=== PATIENT | female | born 1960 | race Asian ===

== ENCOUNTER 2017-04-08 05:38 | Observation (INO) | payer OTHER ==
[~2017-04-08] VITALS: Ht 152.4 cm; Wt 55.4 kg
[2017-04-08] MEDS ORDERED: ASPIRIN 324 MG CHEW PO STA (05:55)
[2017-04-08] MEDS ORDERED: PNEUMOCOCCAL POLYSACCHARIDES 25 MCG/0.5 ML VIAL/SYR IM. ONE (06:00)
[2017-04-08] MEDS ORDERED: NITROGLYCERIN OINT 2% 1GM PACKET EXT ONE (06:00)
[2017-04-08] MEDS ORDERED: PNEUMOCOCCAL ADMINISTRATION CHARGE ONE (06:00)
[2017-04-08 06:06] LABS: HEMATOCRIT 39.3 % (37-47); MEAN CELL VOLUME 88.7 fL (80-100); MEAN CORPUSCULAR HEMOGLOBIN 28.9 pg (25-34); MEAN CORPUSCULAR HGB CONC 32.6 g/dl (32-36); MEAN PLATELET VOLUME 9.5 fL (7.4-10.4); PLATELET COUNT 192 K/uL (130-400); RED BLOOD COUNT 4.43 M/uL (4.2-5.4); WHITE BLOOD COUNT 4.55 K/uL (4.8-10.8)
[2017-04-08 06:17] LABS: INR 0.9 (0.9-1.1); PROTHROMBIN TIME (PATIENT) 10.1 SECONDS (9.0-12.0)
[2017-04-08 06:22] LABS: BUN/CREATININE RATIO 25.2 (10-20); CALCIUM 8.3 mg/dl (8.5-10.1); CREATININE 0.53 mg/dl (0.60-1.20); MAGNESIUM 2.3 mg/dl (1.8-2.4); POTASSIUM 3.7 mmol/L (3.5-5.1)
[2017-04-08 06:30] LABS: COMPLETE YES; EOSINOPHIL % 2.6 %; LYMPH ABS # 2.16 K/uL (1.2-3.4); LYMPHOCYTE % 47.4 %; NEUTROPHILS % 31.9 %; VARIANT LYM ABS # 0.67 K/uL; VARIANT LYMPHOCYTE % 14.7 %
[2017-04-08 06:34] LABS: ALB/GLOB RATIO 1.2 (0.9-2); THYROID STIMULATING HORMONE 6.95 uIu/ml (0.300-4.500)
[2017-04-08] MEDS ORDERED: GLIP5TAB11 PO (07:00)
--- NOTE | 2017-04-08 07:42 | DIAGNOSTIC IMAGING REPORT ---
TWO VIEW CHEST CLINICAL HISTORY: Atypical chest pain. FINDINGS: PA and lateral chest radiographs are obtained. No prior studies are available for comparison at the time of dictation. The heart is mildly enlarged and there is atherosclerotic calcification of the thoracic aorta. The pulmonary vasculature is noncongested. Nonspecific interstitial thickening is noted. No airspace consolidation or pleural effusion is identified. There is no pneumothorax. The skeletal structures are osteopenic. Degenerative change is noted in the thoracic spine. IMPRESSION: Mild cardiac enlargement with no acute cardiopulmonary abnormality. Electronically signed by: Dale Saldana M.D. 04/08/2017 7:41 AM Dictated Date/Time: 04/08/2017 7:40 AM
--- NOTE | 2017-04-08 07:54 | EMERGENCY ROOM VISIT NOTE ---
History First contact with patient: 05:45 Chief Complaint: CHEST PAIN Stated Complaint: CHEST PAIN Nursing Triage Summary: c/o chest pain to center of chest and dizziness that began tonight . pain described as pressure and patient states pain has improved on its own since arriving to ED. patient does state she is still dizzy and has a hx of DM . History of Present Illness The patient is a 57 year old female who presents to the Emergency Room with complaints of lightheadedness, chest pain, and dizziness that began approximately 2 hours prior to arrival. Patient is diabetic and states that her chest pain is central and nonradiating. She feels a tightness in the chest , and has never had symptoms like this before. The patient has not had recent illness. She rates her current discomfort a 7/10 and has not taken anything [id number] for her symptoms. Review of Systems More than 10 systems were reviewed and otherwise negative with the exception of history of present illness. Past Medical/Surgical History Diabetes Family History No pertinent family history Social History Smoking Status: Never Smoker Housing Status: lives with family Current/Historical Medications Scheduled Glipizide (Glucotrol), 1 TAB PO DAILY Allergies Coded Allergies: No Known Allergies (Unverified , 04/08/17) Physical Exam Vital Signs Date Time Temp Pulse Resp B/P Pulse Ox O2 Delivery O2 Flow Rate FiO2 04/08/17 06:33 60 18 125/77 96 Room Air 04/08/17 05:58 98 Room Air 04/08/17 05:56 98 Room Air 04/08/17 05:53 69 04/08/17 05:41 36.6 61 16 119/76 97 Room Air Physical Exam VITALS: Vitals are noted on the nurse's note and reviewed by myself. Vital signs stable. GENERAL: Well-developed, well-nourished, female who is diaphoretic and appears uncomfortable on examination. HEAD: Normocephalic atraumatic. HEART: Regular rate and rhythm without murmurs gallops or rubs. LUNGS: Clear to auscultation bilaterally without wheezes, rales or rhonchi. No retractions or accessory muscle use. ABDOMEN: Positive normal bowel sounds x 4. Soft, nontender, without masses or organomegaly. No guarding or rebound tenderness. MUSCULOSKELETAL: No muscle atrophy, erythema, or edema noted. Full range of motion without joint tenderness in all extremities. Medical Decision & Procedures ER Provider Diagnostic Interpretation: TWO VIEW CHEST CLINICAL HISTORY: Atypical chest pain. FINDINGS: PA and lateral chest radiographs are obtained. No prior studies are available for comparison at the time of dictation. The heart is mildly enlarged and there is atherosclerotic calcification of the thoracic aorta. The pulmonary vasculature is noncongested. Nonspecific interstitial thickening is noted. No airspace consolidation or pleural effusion is identified. There is no pneumothorax. The skeletal structures are osteopenic. Degenerative change is noted in the thoracic spine. IMPRESSION: Mild cardiac enlargement with no acute cardiopulmonary abnormality. Laboratory Results 04/08/17 05:50 Red Blood Count 4.43, Mean Corpuscular Volume 88.7, Mean Corpuscular Hemoglobin 28.9, Mean Corpuscular Hemoglobin Concent 32.6, Mean Platelet Volume 9.5 04/08/17 05:50 Test 04/08/17 05:50 04/08/17 06:02 White Blood Count 4.55 K/uL (4.8-10.8) Red Blood Count 4.43 M/uL (4.2-5.4) Hemoglobin 12.8 g/dL (12.0-16.0) Hematocrit 39.3 % (37-47) Mean Corpuscular Volume 88.7 fL (80-100) Mean Corpuscular Hemoglobin 28.9 pg (25-34) Mean Corpuscular Hemoglobin Concent 32.6 g/dl (32-36) Platelet Count 192 K/uL (130-400) Mean Platelet Volume 9.5 fL (7.4-10.4) RDW Standard Deviation 42.0 fL (36.4-46.3) RDW Coefficient of Variation 13.0 % (11.5-14.5) Neutrophils % (Manual) 31.9 % Lymphocytes % (Manual) 47.4 % Variant Lymphocytes % (manual) 14.7 % Monocytes % (Manual) 3.4 % Eosinophils % (Manual) 2.6 % Neutrophils # (Manual) 1.45 K/uL (1.4-6.5) Total Absolute Neutrophils 1.45 K/uL (1.4-6.5) Lymphocytes # (Manual) 2.16 K/uL (1.2-3.4) Absolute Variant Lymphocytes 0.67 K/uL Total Absolute Lymphocytes 2.83 K/uL (1.2-3.4) Monocytes # (Manual) 0.15 K/uL (0.11-0.59) Eosinophils # (Manual) 0.12 K/uL (0-0.5) Red Blood Cell Morphology Unremarkable Prothrombin Time 10.1 SECONDS (9.0-12.0) Prothromb Time International Ratio 0.9 (0.9-1.1) Activated Partial Thromboplast Time 25.9 SECONDS (21.0-31.0) Partial Thromboplastin Ratio 1.0 Anion Gap 8.0 mmol/L (3-11) Est Creatinine Clear Calc Drug Dose 82.1 ml/min Estimated GFR () 120.5 Estimated GFR (Non- 103.9 BUN/Creatinine Ratio 25.2 (10-20) Calcium Level 8.3 mg/dl (8.5-10.1) Magnesium Level 2.3 mg/dl (1.8-2.4) Total Bilirubin 0.4 mg/dl (0.2-1) Aspartate Amino Transf (AST/SGOT) 16 U/L (15-37) Alanine Aminotransferase (ALT/SGPT) 31 U/L (12-78) Alkaline Phosphatase 92 U/L (45-117) Total Protein 7.1 gm/dl (6.4-8.2) Albumin 3.8 gm/dl (3.4-5.0) Globulin 3.3 gm/dl (2.5-4.0) Albumin/Globulin Ratio 1.2 (0.9-2) Lipase 107 U/L (73-393) Thyroid Stimulating Hormone (TSH) 6.950 uIu/ml (0.300-4.500) Bedside D-Dimer 242 ng/mlFEU (0-450) Bedside Troponin I 0.000 ng/ml (0-0.045) Medications Administered Medications (Trade) Dose Ordered Sig/Shahriar Route Start Time Stop Time Status Last Admin Dose Admin Aspirin (Aspirin Chew) 324 mg NOW STAT PO 04/08/17 05:55 04/08/17 05:57 DC 04/08/17 06:09 324 MG Nitroglycerin (Nitroglycerin 2% Oint) 1 inch NOW ONCE EXT 04/08/17 06:00 04/08/17 06:01 DC 04/08/17 06:00 1 INCH ED Course Physical exam and history were performed. Nursing notes and EMR were reviewed. Patient appears to have chest pain, dizziness, and diaphoresis. IV access was established and labs were obtained. The patient was given aspirin and nitro paste here in the department. EKG was performed was normal sinus rhythm without acute ST elevation. She was placed on the laboratory monitor. The patient's blood work is as above and was reviewed. She does not have a significantly elevated white blood cell count, anemia, bandemia, or significant electrolyte imbalance. Lipase and transaminases are nondiagnostic. Troponin 1 is negative. Chest x-ray does not show acute findings. Patient had complete resolution of her discomfort after aspirin and Nitropaste. Because she is a diabetic and does have chest pain symptoms I do not feel comfortable discharging her home. The case was discussed with the on-call hospitalist who agreed to evaluate the patient here in the department for further care and management. The chart was completed utilizing [employer] Speech Voice Recognition Software. Grammatical errors, random word insertions, pronoun errors, and incomplete sentences are an occasional consequence of this system due to software limitations, ambient noise, and hardware issues. Any formal questions or concerns about the content, text, or information contained within the body of this dictation should be directly addressed to the provider for clarification. . Medical Decision Differential diagnosis includes, but is not limited to: Myocardial infarction, dysrhythmia, pericarditis, pneumothorax, aortic aneurysm/dissection, DVT/PE, anxiety, GERD, PUD, electrolyte imbalance, thyroid disorder, pneumonia, bronchitis, pancreatitis, and others Impression Primary Impression: Substernal precordial chest pain Departure Information Referrals No Doctor, Assigned (PCP) Patient Instructions [facility]
[2017-04-08] MEDS ORDERED: ONDANSETRON INJ 2 MG/ML 2 ML VIAL IV PRN (08:45)
[2017-04-08] MEDS ORDERED: ALUMINUM/MAGNESIUM/SIMETH (MAALOX MAX) 30 ML UDC PO PRN (08:45)
[2017-04-08] MEDS ORDERED: ACETAMINOPHEN 325 MG TAB PO PRN (08:45)
[2017-04-08] MEDS ORDERED: GLUCOSE 10 TABS/TUBE PO PRN (08:45)
[2017-04-08] MEDS ORDERED: MAGNESIUM HYDROXIDE SUSP 30 ML UDC PO PRN (08:45)
[2017-04-08] MEDS ORDERED: GLUCAGON FOR INJ 1 MG VIAL SQ PRN (08:45)
[2017-04-08] MEDS ORDERED: POLYETHYLENE (MIRALAX) 17 GM PACK PO PRN (08:45)
[2017-04-08] MEDS ORDERED: GLUCOSE 40% GEL 15 GM TUBE PO PRN (08:45)
[2017-04-08] MEDS ORDERED: DEXTROSE 50% 50 ML SYR IV PRN (08:45)
[2017-04-08 09:00] VITALS: O2SAT 96; Ht 152.4 cm; Wt 55.4 kg
[2017-04-08] MEDS ORDERED: OMEG10002 PO (09:09)
--- NOTE | 2017-04-08 09:13 | History and Physical ---
History & Physical Date & Time of Service: April 08, 2017 at 08:49 Chief Complaint: Chest Pain Primary Care Physician: No Doctor, Assigned History of Present Illness Source: patient, family (daughter at bedside), clinic records, hospital records This is a 57 y/o female with a history of DM II, HLD, and GERD who presented to the ED on 04/08 with chest tightness, palpitations, shortness of breath, dizziness and diaphoresis. The patient speaks limited Turkmen and history is obtained mostly through the daughter who acts as wage adjuster. The patient states that she developed chest tightness, palpitations, shortness of breath, dizziness, and diaphoresis about 2 hours prior to arrival. These symptoms were accompanied by anxiety and a feeling that she was "going to ." Her dizziness persisted until arriving to the ED, but her other symptoms only lasted for about 2 minutes. She currently denies any complaints and is feeling well now. Patient denies ever having similar symptoms in the past. She denies any previous cardiac history. The patient did receive 1 inch nitro paste on arrival to the ED as well as ASA 324 mg. The patient denies fevers, chills, chest pain, claudication, cough, wheezing, nausea, vomiting, abdominal pain, dysuria, hematuria, urinary retention, paralysis, weakness, numbness and tingling. Past Medical/Surgical History Diabetes mellitus type 2 HLD GERD Family History Diabetes mellitus MOTHER Hypertension Oral cancer BROTHER Stroke FATHER Social History Smoking Status: Never Smoker Smokeless Tobacco Use: No Alcohol Use: none Drug Use: none Marital Status: Housing status: lives with family (with daughter) Multi-Drug Resistant Organisms History of MDRO: No Allergies Coded Allergies: No Known Allergies (Unverified , 04/08/17) Home Medications Scheduled Glipizide (Glucotrol), 1 TAB PO DAILY [place]-3 Fatty Acids (Fish Oil), 1,000 MG PO DAILY Review of Systems Constitutional: + problem reported (dizziness), + sweats, No chills, No fever Eyes: No diplopia, No eye pain, No worsening of vision ENT: No hearing loss, No sore throat, No trouble swallowing Respiratory: + shortness of breath (resolved), No cough, No wheezing Cardiovascular: + palpitations (resolved), + problem reported (chest tight), No chest pain, No edema Abdomen: No nausea, No pain, No vomiting Musculoskeletal: No calf pain, No joint pain, No muscle pain Genitourinary - Female: No dysuria, No hematuria, No urinary retention Neurologic: No numbness/tingling, No paralysis, No weakness Integumentary: No color change, No itch, No rash Physical Exam Vital Signs Date Time Temp Pulse Resp B/P Pulse Ox O2 Delivery O2 Flow Rate FiO2 04/08/17 08:10 66 16 104/77 04/08/17 07:52 58 16 114/72 04/08/17 06:33 60 18 125/77 96 Room Air 04/08/17 05:58 98 Room Air 04/08/17 05:56 98 Room Air 04/08/17 05:53 69 04/08/17 05:41 36.6 61 16 119/76 97 Room Air General Appearance: WD/WN, no apparent distress Head: normocephalic, atraumatic Eyes: normal inspection, PERRL, EOMI ENT: normal ENT inspection, hearing grossly normal, pharynx normal Neck: supple, no JVD, trachea midline Respiratory/Chest: lungs clear, normal breath sounds, no respiratory distress Cardiovascular: regular rate, rhythm, no gallop, no murmur Abdomen/GI: normal bowel sounds, non tender, soft Extremities/Musculoskelatal: normal inspection, no calf tenderness, no pedal edema Neurologic/Psych: alert, normal mood/affect, oriented x 3 Skin: normal color, warm/dry, no rash Diagnostics Laboratory Results Results Past 24 Hours Test 04/08/17 05:50 04/08/17 06:02 Range/Units White Blood Count 4.55 4.8-10.8 K/uL Red Blood Count 4.43 4.2-5.4 M/uL Hemoglobin 12.8 12.0-16.0 g/dL Hematocrit 39.3 37-47 % Mean Corpuscular Volume 88.7 80-100 fL Mean Corpuscular Hemoglobin 28.9 25-34 pg Mean Corpuscular Hemoglobin Concent 32.6 32-36 g/dl Platelet Count 192 130-400 K/uL Mean Platelet Volume 9.5 7.4-10.4 fL RDW Standard Deviation 42.0 36.4-46.3 fL RDW Coefficient of Variation 13.0 11.5-14.5 % Neutrophils % (Manual) 31.9 % Lymphocytes % (Manual) 47.4 % Variant Lymphocytes % (manual) 14.7 % Monocytes % (Manual) 3.4 % Eosinophils % (Manual) 2.6 % Neutrophils # (Manual) 1.45 1.4-6.5 K/uL Total Absolute Neutrophils 1.45 1.4-6.5 K/uL Lymphocytes # (Manual) 2.16 1.2-3.4 K/uL Absolute Variant Lymphocytes 0.67 K/uL Total Absolute Lymphocytes 2.83 1.2-3.4 K/uL Monocytes # (Manual) 0.15 0.11-0.59 K/uL Eosinophils # (Manual) 0.12 0-0.5 K/uL Red Blood Cell Morphology Unremarkable Prothrombin Time 10.1 9.0-12.0 SECONDS Prothromb Time International Ratio 0.9 0.9-1.1 Activated Partial Thromboplast Time 25.9 21.0-31.0 SECONDS Partial Thromboplastin Ratio 1.0 Sodium Level 143 136-145 mmol/L Potassium Level 3.7 3.5-5.1 mmol/L Chloride Level 109 98-107 mmol/L Carbon Dioxide Level 26 21-32 mmol/L Anion Gap 8.0 3-11 mmol/L Blood Urea Nitrogen 13 7-18 mg/dl Creatinine 0.53 0.60-1.20 mg/dl Est Creatinine Clear Calc Drug Dose 82.1 ml/min Estimated GFR () 120.5 Estimated GFR (Non- 103.9 BUN/Creatinine Ratio 25.2 10-20 Random Glucose 123 70-99 mg/dl Calcium Level 8.3 8.5-10.1 mg/dl Magnesium Level 2.3 1.8-2.4 mg/dl Total Bilirubin 0.4 0.2-1 mg/dl Aspartate Amino Transf (AST/SGOT) 16 15-37 U/L Alanine Aminotransferase (ALT/SGPT) 31 12-78 U/L Alkaline Phosphatase 92 45-117 U/L Total Protein 7.1 6.4-8.2 gm/dl Albumin 3.8 3.4-5.0 gm/dl Globulin 3.3 2.5-4.0 gm/dl Albumin/Globulin Ratio 1.2 0.9-2 Lipase 107 73-393 U/L Thyroid Stimulating Hormone (TSH) 6.950 0.300-4.500 uIu/ml Bedside D-Dimer 242 0-450 ng/mlFEU Bedside Troponin I 0.000 0-0.045 ng/ml Diagnostic Radiology Reviewed the following studies and agree with interpretation as follows: Patient Name: LUKE PINEDO Unit Number: [id number] Dictated: 04/08/17739 Transcribed: 04/08/17739 EV Printed Date/Time: [~ rep prt dt]/[~ rep prt tm] [~ rep ct labl] - [~ rep ct ivnm] [facility] [place] [address] Dictated: 04/08/17739 Transcribed: 04/08/17739 EV Printed Date/Time: [~ rep prt dt]/[~ rep prt tm] [~ rep ct labl] - [~ rep ct ivnm] Patient: LUKE PINEDO Address1: [address] [place] [address] Rec: [id number] Address2: Acct ID: [id number] [facility] Zip: [place] [address] Date: 1960 Sex: F Room/Bed: Ref Phy: No Doctor, Assigned SC: MELANIA Att Phy: Report #: [id number] Barbara Phy: No Doctor, Assigned Test: CXR Admit Phy: Burrito Maker: ERAN Interpreting Phy: Dale Saldana M.D. Diagnosis: CHEST PAIN Ordering Phy: Reji Rosado PA-C Service Date: 04/08/17 Admit Date: 04/08/17 MNE: [id number] CONF: DICTATED BY: Dale Saldana M.D.]] CC: Reji Rosado PA-C McKinley, Daniel F., M.D. No Doctor, Assigned Endcc: [~ rep ct add3]] TWO VIEW CHEST CLINICAL HISTORY: Atypical chest pain. FINDINGS: PA and lateral chest radiographs are obtained. No prior studies are available for comparison at the time of dictation. The heart is mildly enlarged and there is atherosclerotic calcification of the thoracic aorta. The pulmonary vasculature is noncongested. Nonspecific interstitial thickening is noted. No airspace consolidation or pleural effusion is identified. There is no pneumothorax. The skeletal structures are osteopenic. Degenerative change is noted in the thoracic spine. IMPRESSION: Mild cardiac enlargement with no acute cardiopulmonary abnormality. Electronically signed by: Dale Saldana M.D. 04/08/2017 7:41 AM Dictated Date/Time: 04/08/2017 7:40 AM The status of this report is Signed. Draft = Not yet reviewed or approved by Radiologist. Signed = Reviewed and approved by Radiologist. <AttendingPhy></AttendingPhy> <FamilyPhy>No Doctor, Assigned</FamilyPhy> < PrimaryPhy>No Doctor, Assigned</PrimaryPhy> <UnitNumber>[id number]</UnitNumber> <VisitNumber>[id number]</VisitNumber> <PatientName>LUKE PINEDO</PatientName> < DateOfBirth>1960</DateOfBirth> <Location>[facility]</Location> <ServiceDate></ServiceDate> <MNE>ESINDI</MNE> <OrderingPhy>Reji Rosado PA-C</ OrderingPhy> <OrderingPhyMNE>f rep ord dr patterson</OrderingPhyMNE> <DictatingPhyMNE> f rep dict dr patterson</DictatingPhyMNE> <CCListMNE>f rep ct yesenia</CCListMNE> < AdmittingPhyMNE>f pt admit dr patterson</AdmittingPhyMNE> <AttendingPhyMNE>f pt attend dr patterson</AttendingPhyMNE> <ConsultingPhyMNE>f pt consult dr patterson</ConsultingPhyMNE> <FamilyPhyMNE>f pt fam dr patterson</FamilyPhyMNE> <OtherPhyMNE>f pt other dr patterson</OtherPhyMNE> < PrimaryPhyMNE>f pt prim care dr patterson</PrimaryPhyMNE> <ReferringPhyMNE>f pt referring dr patterson</ReferringPhyMNE> EKG Reviewed EKG and agree with interpretation as follows: 69 bpm, sinus rhythm with 1st degree AV block Impression Assessment and Plan 57 y/o female with a history of DM II, HLD, and GERD who presented to the ED on 04/08 with chest tightness, palpitations, shortness of breath, dizziness and diaphoresis. Patient developed these symptoms denies prior to arrival. The symptoms did spontaneously resolve. On arrival patient is afebrile and vital signs are stable. [id number] troponin is negative. EKG shows no ischemic changes. Labs are grossly within normal limits however the patient does have an elevated TSH of 6.95. Chest pain rule out--patient denies pain per se but did complain of palpitations , diaphoresis, SOB and chest tightness. As a female over 50 and diabetic, could present atypically -Admit to telemetry for observation -Trend serial cardiac enzymes every 6 hours -Keep patient nothing by mouth for now -Tentative stress echo this afternoon if troponins negative 2 -Check lipid profile and hemoglobin A1c -Cardiology consulted, appreciate recs Diabetes mellitus type 2--last hemoglobin A1c and hospital records is from 2011. Patient states that she checks her blood sugars regularly at home and they average around 125 -Hold glipizide -Insulin sliding scale -Check BSGs q ac and qhs HLD--patient had previously been on Lipitor but was told by her doctor that she did not need to be on this anymore. No lipid panel in hospital records -Continue fish oil Elevated TSH--no known history of thyroid dysfunction -Check free T4 and T3 GERD--pt states happens occasionally, no meds for this DVT prophylaxis -Enoxaparin 30 mg SC q24h -CASS Mccall Code Status -Level I, FULL RESUSCITATION STATUS This chart was completed in part utilizing [employer] Speech Voice Recognition software. Attempts were made to minimize the grammatical errors, random word insertions, pronoun errors and incomplete sentences. Any formal questions or concerns about the content, text or information contained within the body of this dictation should be directly addressed to the provider for clarification. Level of Care Telemetry Resuscitation Status FULL RESUSCITATION VTE Prophylaxis VTE Risk Assessment Done? Y/N: Yes Risk Level: Moderate Given or contraindicated: Enoxaparin (Lovenox)SQ, SCD's Reviewed: Pt Seen/Exam by Me History Physician Office Engineer Supervision Note: I interviewed and examined the patient. Discussed with RHONDA Morrison and agree with findings and plan as documented in the note. Any exceptions or clarifications are listed here: Patient admitted for heart palpitations with lightheadedness and sense of impending doom with shortness of breath. Discussed case with cardiology today. She was unable to complete her stress echocardiogram due to lightheadedness with exercise. Cardiac biomarkers are negative. Vitals and telemetry reviewed No acute distress, thin Regular rate and rhythm, no murmurs gallops or rubs, no carotid bruits Clear to auscultation bilaterally, breathing unlabored Abdomen positive bowel sounds soft nontender nondistended Extremities no edema 57-year-old female with history of diabetes and hyperlipidemia, here with heart palpitations and lightheadedness with diaphoresis and shortness of breath lasting several minutes. She is ruled out for acute coronary syndrome. Transthoracic echo with diastolic dysfunction but otherwise okay. A nap able to complete stress echocardiogram today. -We'll try dobutamine stress possibly tomorrow -Subclinical hypothyroidism-suggest follow-up thyroid function tests in 3-4 weeks as an outpatient -Start moderate intensity statin, continue daily aspirin -Continue observation on telemetry for heart block as cause of her symptoms-May need loop recorder or long-term event monitor upon discharge Documented By: So Christian
[2017-04-08 09:35] LABS: CHOLESTEROL/HDL RATIO 3.9
[2017-04-08 09:40] LABS: ESTIMATED AVERAGE GLUCOSE 146 mg/dl; HA1C FLAG Normal (Normal)
[2017-04-08] MEDS ORDERED: IV FLUIDS COMPLETED PRN (10:30)
[2017-04-08 10:35] VITALS: O2SAT 97
[2017-04-08 11:34] VITALS: BP 126/75; PULSE 63; TEMP 36.8; O2SAT 92
[2017-04-08 12:42] LABS: CKMB/CK RATIO 1.1 (0-3.0)
[2017-04-08] MEDS: ENOXAPARIN 30 MG/0.3 ML SYR SC SCH (13:24)
[2017-04-08] MEDS: INSULIN ASPART 100 UNITS/ML 3 ML PEN SC SCH ×3 (13:24→20:39)
--- NOTE | 2017-04-08 13:52 | Cardiology Consultation ---
Cardiology Consultation Date of Consultation: April 08, 2017. Requesting Physician: Dr. Morrison Reason for Consultation: Chest pain Pt evaluation today including: conversation w/ patient, physical exam, lab review, review of studies, review of inpatient medication list History of Present Illness This is a very pleasant 57-year-old Urdu woman who has a history of diabetes, hyperlipidemia and GERD and presented today with chest tightness. She describes development of epigastric and lower sternal chest discomfort associated with shortness of breath, dizziness and diaphoresis which started about 2 hours before presenting to the emergency room. This was accompanied by a sense of doom. The episode was brief in duration, although some symptoms of dizziness persisted until she came into the emergency room. This has not recurred. She has not had prior episodes. Other than having risk factors for coronary disease she does not have any prior history of heart disease. Her father had a stroke but she does not have a family history of heart disease. Currently she feels well and has no complaints. She is resting in bed. Past Medical/Surgical History Diabetes mellitus Hypercholesterolemia GERD Family History Diabetes mellitus MOTHER Hypertension Oral cancer BROTHER Stroke FATHER Social History Smoking Status: Never Smoker History of Alcohol Use: No Review of Systems Constitutional: No fever, No weakness, No weight loss Respiratory: No cough, No dyspnea on exertion, No shortness of breath, No wheezing Cardiac: No PND, No chest pain, No edema, No orthopnea, No palpitations Abdomen: No GI bleeding, No diarrhea, No nausea, No pain, No vomiting Female : No problem reported Neurologic: No balance problems, No numbness/tingling, No paralysis, No weakness Heme: No abnormal bleeding/bruising, No clotting problems Endo: No fatigue Skin: No problem reported All Other Systems: Reviewed and Negative Allergies Coded Allergies: No Known Allergies (Unverified , 04/08/17) Medications Current Inpatient Medications Medications (Trade) Dose Ordered Sig/Shahriar Route Start Time Stop Time Status Last Admin Dose Admin Enoxaparin Sodium (Lovenox Inj) 30 mg QAM SC 04/08/17 12:00 05/08/17 11:59 04/08/17 13:24 30 MG Acetaminophen (Tylenol Tab) 650 mg Q4H PRN PO 04/08/17 08:45 05/08/17 08:44 Al Hydrox/Mg Hydrox/Simethicone (Maalox Max Susp) 15 ml Q4H PRN PO 04/08/17 08:45 05/08/17 08:44 Magnesium Hydroxide (Milk Of Magnesia Susp) 30 ml Q12H PRN PO 04/08/17 08:45 05/08/17 08:44 Ondansetron HCl (Zofran Inj) 4 mg Q6H PRN IV 04/08/17 08:45 05/08/17 08:44 Polyethylene (Miralax Powder Packet) 17 gm DAILY PRN PO 04/08/17 08:45 05/08/17 08:44 Glucose (Glucose 40% Gel) 15-30 GRAMS 15 GRAMS... UD PRN PO 04/08/17 08:45 05/08/17 08:44 Glucose (Glucose Chew Tab) 4-8 Tablets 4 Tabl... UD PRN PO 04/08/17 08:45 05/08/17 08:44 Dextrose (Dextrose 50% 50ML Syringe) 25-50ML OF 50% DW IV FOR... UD PRN IV 04/08/17 08:45 05/08/17 08:44 Glucagon (Glucagon Inj) 1 mg UD PRN SQ 04/08/17 08:45 05/08/17 08:44 Insulin Aspart (novoLOG ASPART) SLIDING SCALE G... ACHS SC 04/08/17 11:00 05/08/17 10:59 Fish Oil ([place]-3 (Purified Fish Oil) Cap) 1 gm DAILY PO 04/09/17 09:00 05/09/17 08:59 Miscellaneous (Iv Fluids Completed) 1 ea PRN PRN N/A 04/08/17 10:30 04/08/18 10:29 Physical Exam Vital Signs Past 12 Hours Date Time Temp Pulse Resp B/P Pulse Ox O2 Delivery O2 Flow Rate FiO2 04/08/17 11:34 36.8 63 16 126/75 92 Room Air 04/08/17 10:35 65 16 111/70 97 Room Air 04/08/17 09:32 69 16 114/65 04/08/17 09:00 96 Room Air 04/08/17 08:10 66 16 104/77 04/08/17 07:52 58 16 114/72 04/08/17 06:33 60 18 125/77 96 Room Air 04/08/17 05:58 98 Room Air 04/08/17 05:56 98 Room Air 04/08/17 05:53 69 04/08/17 05:41 36.6 61 16 119/76 97 Room Air Constitutional: General Apperance: heathly-appearing Level of Distress: NAD Psychiatric: Mental Status: active & alert Head: normocephalic Eyes: EOM: EOMI ENMT: normal ENT inspection, hearing grossly normal Neck: supple, no masses Lungs: Respiratory effort: no dyspnea, good air movement Auscultation: breath sounds normal, no wheezing Cardiovascular: Heart Auscultation: RRR, no murmurs, no rubs, no gallops Peripheral Pulses: Bruits: none appreciated Abdomen: Bowel Sounds: normal Inspection & Palpation: soft, no tenderness, guarding & rebound, no masses Musculoskeletal: normal strength (5/5 throughout) Extremities: no edema Neurologic: Cranial Nerves: grossly intact Sensation: grossly intact Data Laboratory Results: Last 24 Hours Test 04/08/17 05:50 04/08/17 06:02 04/08/17 11:45 04/08/17 11:50 White Blood Count 4.55 K/uL Red Blood Count 4.43 M/uL Hemoglobin 12.8 g/dL Hematocrit 39.3 % Mean Corpuscular Volume 88.7 fL Mean Corpuscular Hemoglobin 28.9 pg Mean Corpuscular Hemoglobin Concent 32.6 g/dl Platelet Count 192 K/uL Mean Platelet Volume 9.5 fL RDW Standard Deviation 42.0 fL RDW Coefficient of Variation 13.0 % Neutrophils % (Manual) 31.9 % Lymphocytes % (Manual) 47.4 % Variant Lymphocytes % (manual) 14.7 % Monocytes % (Manual) 3.4 % Eosinophils % (Manual) 2.6 % Neutrophils # (Manual) 1.45 K/uL Total Absolute Neutrophils 1.45 K/uL Lymphocytes # (Manual) 2.16 K/uL Absolute Variant Lymphocytes 0.67 K/uL Total Absolute Lymphocytes 2.83 K/uL Monocytes # (Manual) 0.15 K/uL Eosinophils # (Manual) 0.12 K/uL Red Blood Cell Morphology Unremarkable Prothrombin Time 10.1 SECONDS Prothromb Time International Ratio 0.9 Activated Partial Thromboplast Time 25.9 SECONDS Partial Thromboplastin Ratio 1.0 Sodium Level 143 mmol/L Potassium Level 3.7 mmol/L Chloride Level 109 mmol/L Carbon Dioxide Level 26 mmol/L Anion Gap 8.0 mmol/L Blood Urea Nitrogen 13 mg/dl Creatinine 0.53 mg/dl Est Creatinine Clear Calc Drug Dose 82.1 ml/min Estimated GFR () 120.5 Estimated GFR (Non- 103.9 BUN/Creatinine Ratio 25.2 Random Glucose 123 mg/dl Estimated Average Glucose 146 mg/dl Hemoglobin A1c 6.7 % Calcium Level 8.3 mg/dl Magnesium Level 2.3 mg/dl Total Bilirubin 0.4 mg/dl Aspartate Amino Transf (AST/SGOT) 16 U/L Alanine Aminotransferase (ALT/SGPT) 31 U/L Alkaline Phosphatase 92 U/L Total Protein 7.1 gm/dl Albumin 3.8 gm/dl Globulin 3.3 gm/dl Albumin/Globulin Ratio 1.2 Triglycerides Level 106 mg/dl Cholesterol Level 209 mg/dl HDL Cholesterol 54 mg/dl LDL Cholesterol, Calculated 134 mg/dl VLDL Cholesterol, Calculated 21 mg/dl Cholesterol/HDL Ratio 3.9 Lipase 107 U/L Thyroid Stimulating Hormone (TSH) 6.950 uIu/ml Free Thyroxine 1.06 ng/dl Free Triiodothyronine 3.07 pg/ml Bedside D-Dimer 242 ng/mlFEU Bedside Troponin I 0.000 ng/ml Total Creatine Kinase 85 U/L Creatine Kinase MB 0.9 ng/ml Creatine Kinase MB Ratio 1.1 Troponin I < 0.015 ng/ml Bedside Glucose 137 mg/dl Imaging: Chest x-ray essentially unremarkable EKG: Sinus rhythm with first-degree AV block, no acute change Telemetry reviewed: Sinus rhythm with first-degree AV block, no arrhythmia identified. Assessment & Plan #1. Symptoms of chest discomfort, palpitations and dizziness: The cause is unclear, the only finding is that of first-degree AV block. The chest discomfort was very short lived but the dizziness was more prolonged, it is unlikely that this is an ischemic event. The enzymes are negative 2 sets and there are no acute changes on electrocardiography. I think it would be reasonable to do a stress test however given her diabetes and hypercholesterolemia. We'll therefore plan on doing a stress echo today. First-degree AV block: She is on no medications to cause first-degree AV block and therefore the reason for this is unknown. It may simply be first-degree AV block or it is possible that her symptoms were due to higher grade AV block, certainly the dizziness could have been. We have not seen further heart block but we can see if her heart rate response normally on treadmill testing, additionally I would keep her at least overnight tonight to make sure she does not develop higher grade AV block overnight. Event monitoring for one month might be a consideration if nothing is identified on monitoring in the hospital. Thank you for allowing me to participate in her care.
--- NOTE | 2017-04-08 16:34 | ECHOCARDIOGRAM REPORT ---
*NOTICE TO RECEIVING [employer] This information is strictly Confidential and protected under [place] law. [place] law prohibits you from making any further disclosure of this information unless further disclosure is expressly permitted by the written consent of the person to whom it pertains or is authorized by law. A general authorization for the release of medical or other information is not sufficient for this purpose. Hospital accepts no responsibility if the information is made available to any other person, INCLUDING THE PATIENT. Interpretation Summary * Conclusions -- * There is borderline concentric left ventricular hypertrophy. * Left ventricular systolic function is normal. * Grade I diastolic dysfunction, (abnormal relaxation pattern). Procedure Details * Left Ventricle The left ventricle is normal in size. There is borderline concentric left ventricular hypertrophy. Left ventricular systolic function is normal. Ejection Fraction = 60-65%. Grade I diastolic dysfunction, (abnormal relaxation pattern). The left ventricular wall motion is normal. * Right Ventricle The right ventricle is normal in size and function. The right ventricular systolic function is normal as assessed by tricuspid annular plane systolic excursion (TAPSE) (normal >1.5 cm). * Atria The left atrial size is normal. Right atrial size is normal. Cannot exclude PFO * Mitral Valve The mitral valve is grossly normal. There is no mitral regurgitation noted. * Tricuspid Valve The tricuspid valve is not well visualized, but is grossly normal. Significant tricuspid regurgitation is absent. * Aortic Valve The aortic valve is normal in structure and function. No hemodynamically significant valvular aortic stenosis. Trace aortic regurgitation. * Pericardium/Pleural There is no pericardial effusion. * * MMode 2D Measurements and Calculations * IVSd 0.99 cm * IVSs 1.3 cm * * LVIDd 3.8 cm * LVIDs 2.6 cm * LVPWd 1.2 cm * LVPWs 1.6 cm * * IVS/LVPW 0.85 * FS 33.7 % * EDV(Teich) 63.8 ml * ESV(Teich) 23.5 ml * EF(Teich) 63.2 % * * EDV(cubed) 57.0 ml * ESV(cubed) 16.6 ml * EF(cubed) 70.8 % * % IVS thick 27.6 % * % LVPW thick 35.6 % * * LV mass(C)d 132.7 grams * LV mass(C)dI 88.7 grams/m\S\2 * LV mass(C)s 117.0 grams * LV mass(C)sI 78.1 grams/m\S\2 * * CO(Teich) 2.2 l/min * CI(Teich) 1.5 l/min/m\S\2 * SV(Teich) 40.3 ml * SI(Teich) 26.9 ml/m\S\2 * CO(cubed) 2.2 l/min * CI(cubed) 1.5 l/min/m\S\2 * SV(cubed) 40.3 ml * SI(cubed) 26.9 ml/m\S\2 * * ACS 1.6 cm * * asc Aorta Diam 3.3 cm * * LVOT diam 2.2 cm * LVOT area 3.9 cm\S\2 * * LVAd ap4 26.7 cm\S\2 * LVLd ap4 8.7 cm * EDV(MOD-sp4) 69.0 ml * LVAs ap4 14.0 cm\S\2 * LVLs ap4 6.6 cm * ESV(MOD-sp4) 25.0 ml * EF(MOD-sp4) 63.8 % * * LVAd ap2 20.4 cm\S\2 * LVLd ap2 7.7 cm * EDV(MOD-sp2) 46.0 ml * LVAs ap2 10.9 cm\S\2 * LVLs ap2 5.8 cm * ESV(MOD-sp2) 17.0 ml * EF(MOD-sp2) 63.0 % * * CO(MOD-sp4) 2.4 l/min * CI(MOD-sp4) 1.6 l/min/m\S\2 * SV(MOD-sp4) 44.0 ml * SI(MOD-sp4) 29.4 ml/m\S\2 * * CO(MOD-sp2) 1.6 l/min * CI(MOD-sp2) 1.0 l/min/m\S\2 * SV(MOD-sp2) 29.0 ml * SI(MOD-sp2) 19.4 ml/m\S\2 * * * * * * Doppler Measurements and Calculations * MV E max yaw 65.6 cm/sec * MV A max yaw 83.3 cm/sec * * MV E/A 0.79 * * MV P1/2t max yaw 71.2 cm/sec * MV P1/2t 87.1 msec * MVA(P1/2t) 2.5 cm\S\2 * MV dec slope 239.5 cm/sec\S\2 * MV dec time 0.19 sec * * Ao V2 max 105.9 cm/sec * Ao max PG 4.5 mmHg * Ao max PG (full) 1.6 mmHg * KOSTAS(V,A) 3.1 cm\S\2 * KOSTAS(V,D) 3.1 cm\S\2 * * LV V1 max PG 2.9 mmHg * * LV V1 max 85.2 cm/sec * * PA V2 max 61.7 cm/sec * PA max PG 1.5 mmHg * * *
[2017-04-08 17:18] VITALS: BP 105/63; PULSE 50; TEMP 37.1; O2SAT 96
[2017-04-08 19:39] VITALS: BP 116/73; PULSE 58; TEMP 37; O2SAT 92
[2017-04-08 23:12] VITALS: BP 111/64; PULSE 52; TEMP 36.6; O2SAT 95
[2017-04-09 03:50] VITALS: BP 109/65; PULSE 51; TEMP 36.6; O2SAT 94
[2017-04-09 05:49] LABS: URINE APPEARANCE CLEAR (CLEAR); URINE BILIRUBIN NEG (NEG); URINE COLOR YELLOW; URINE NITRITE NEG (NEG); UROBILINOGEN NEG (NEG); ZZUR CULT IF INDIC CLEAN CATCH NO
[2017-04-09 06:06] LABS: MANUAL MICROSCOPIC REQUIRED? NO; REVIEW REQ? NO
[2017-04-09 07:02] VITALS: BP 102/62; PULSE 52; TEMP 36.6; O2SAT 95
[2017-04-09 07:12] LABS: HEMATOCRIT 37.2 % (37-47); MEAN CORPUSCULAR HEMOGLOBIN 29.7 pg (25-34); MEAN CORPUSCULAR HGB CONC 33.3 g/dl (32-36); RED BLOOD COUNT 4.18 M/uL (4.2-5.4); WHITE BLOOD COUNT 3.12 K/uL (4.8-10.8)
[2017-04-09 07:13] LABS: MEAN PLATELET VOLUME 9.5 fL (7.4-10.4); PLATELET COUNT 189 K/uL (130-400)
[2017-04-09 07:48] LABS: BUN/CREATININE RATIO 22.5 (10-20); CREATININE 0.75 mg/dl (0.60-1.20); POTASSIUM 3.7 mmol/L (3.5-5.1)
[2017-04-09 07:49] LABS: CALCIUM 8.3 mg/dl (8.5-10.1)
[2017-04-09] MEDS: INSULIN ASPART 100 UNITS/ML 3 ML PEN SC SCH ×3 (08:52→16:30)
[2017-04-09] MEDS: ENOXAPARIN 30 MG/0.3 ML SYR SC SCH (08:53)
[2017-04-09] MEDS ORDERED: ATORVASTATIN 20 MG TAB PO SCH (09:00)
[2017-04-09] MEDS ORDERED: ASPIRIN 81 MG ECTAB PO SCH (09:00)
[2017-04-09] MEDS ORDERED: OMEGA-3 (PURIFIED FISH OIL) 1 GM CAP PO SCH (09:00)
[2017-04-09 11:30] VITALS: BP 118/67; PULSE 48; TEMP 36.6; O2SAT 96
[2017-04-09] MEDS ORDERED: DOBUTamine HCL 12.5 MG/ML 20 ML VIAL ONE (12:54)
[2017-04-09] MEDS ORDERED: ATROPINE SULFATE 0.1 MG/ML 5ML SYR ONE (12:54)
[2017-04-09] MEDS ORDERED: METOPROLOL TARTRATE 1 MG/ML VIAL ONE (12:54)
[2017-04-09] MEDS ORDERED: LPT20 PO (13:19)
[2017-04-09] MEDS ORDERED: ASPEC81 PO (13:19)
--- NOTE | 2017-04-09 14:15 | Discharge Instructions ---
Discharge Instructions Date of Service April 09, 2017. Admission Reason for Admission: Dizziness, Palpitations Discharge Discharge Diagnosis / Problem: Dizziness, palpitations, first degree AV block Discharge Goals Goal(s): Decrease discomfort, Improve function, Diagnostic testing, Therapeutic intervention Activity Recommendations Activity Limitations: resume your previous activity (as tolerated) . Instructions / Follow-Up Instructions / Follow-Up You were admitted to the hospital for overnight observation after presenting to the ER with dizziness, palpitations (heart racing/fluttering), shortness of breath, sweating and chest tightness. Women and diabetics can often have atypical presentations of heart attack even without chest pain, so you were admitted to rule out any acute cardiac events. Your EKG did show a first degree AV block, or heart block, which is a common condition in which there is a delay of the electrical signal that goes down to the bottom chambers of your heart (ventricles) to stimulate them to contract. It is unknown at this time why you have a first degree AV block. You were observed with continuous cardiac monitoring to see if you developed any further/higher grade heart block , but you have so far not shown any evidence of this. You will follow up with cardiology as an outpatient who may consider monitoring your heart over the course of a month to make sure you do not develop worsening heart block. Other cardiac work up included trending cardiac enzymes, which are substances that are released into the blood when there is damage to the heart. These have all been normal. You underwent a stress echocardiogram, in which an ultrasound of the heart was checked after a stress-state had been induced by a chemical injection. This was also normal and did not show any acute or concerning findings. Your cholesterol was checked which did show that your cholesterol was slightly high. Your [id number], a test to assess your diabetes, was normal and showed that your diabetes is well controlled. Due to your cardiovascular risk based on age, cholesterol and diabetes, however, it is recommended that you start taking cholesterol medication again. While being worked up for your symptoms, you were found to have an elevated thyroid stimulating hormone, which was suggestive of an underactive thyroid. Your thyroid hormones were also checked, but these were normal, not decreased as would be expected. This likely represents a subclinical hypothyroidism and does not need to be treated at this time due to lack of associated symptoms. Your primary care provider should recheck your thyroid in 3-4 weeks as an outpatient, or sooner if you develop symptoms such as fatigue, cold sensitivity , constipation, and weight gain. As your cardiac work up in the hospital has been normal, you are now medically stable for discharge to home. Medications: *Start taking atorvastatin (Lipitor) 20 mg by mouth daily. *Please start taking aspirin 81 mg by mouth daily. *Continue your other home medications as prescribed. You may continue taking your over the counter supplements as before. Follow up: *The Nurse Navigator at the hospital will schedule you for a follow up appointment with cardiology and a primary care provider. *Have your thyroid function rechecked in 3-4 weeks with your primary care provider as above. Please seek medical attention if you experience fevers, chills, sweats, chest pain, palpitations, dizziness, loss of consciousness, shortness of breath, nausea, vomiting, numbness or tingling. Current Hospital Diet Patient's current hospital diet: AHA Diet (Heart Healthy), Diabetes Type 2 Diet Discharge Diet Recommended Diet: AHA Diet (Heart Healthy), Diabetes Type 2 Diet Procedures Procedures Performed: Stress echocardiogram Pending Studies Studies pending at discharge: no Laboratory Results Hemoglobin A1c Test 04/08/17 05:50 Range/Units Estimated Average Glucose 146 mg/dl Hemoglobin A1c 6.7 H 4.5-5.6 % Lipid Panel Test 04/08/17 05:50 Range/Units Triglycerides Level 106 0-150 mg/dl Cholesterol Level 209 H 0-200 mg/dl HDL Cholesterol 54 mg/dl Cholesterol/HDL Ratio 3.9 LDL Cholesterol, Calculated 134 mg/dl Medical Emergencies . Who to Call and When: Medical Emergencies: If at any time you feel your situation is an emergency, please call 911 immediately. . Non-Emergent Contact Non-Emergency issues call your: Primary Care Provider, Investigative Writer Call Non-Emergent contact if: you have a fever, your pain is not controlled, your pain is worsening, your pain is unusual for you, your pain is concerning you, you have any medication questions . Past History Medical & Surgical History: (1) Dizziness (2) Palpitations . "Provider Documentation" section prepared by Cassie Morrison. . VTE Core Measure Inpt VTE Proph given/why not?: Enoxaparin (Lovenox)SQ, SCD's
--- NOTE | 2017-04-09 14:29 | Discharge Summary ---
Discharge Summary Date of Service April 09, 2017. (Cassie Morrison ., ILANC) Discharge Summary Admission Date: April 08, 2017 at 08:48 Discharge Date: April 09, 2017 Discharge Disposition: Home Principal Diagnosis: Dizziness, palpitations Problems/Secondary Diagnoses: Diabetes mellitus type 2 Hyperlipidemia Consultations: Cardiology--Dr. Sands (Cassie Morrison, PA-C) Problems/Secondary Diagnoses: Subclinical hypothyroidism GERD First degree AV block (So Christian MD) Medication Reconciliation New Medications: Aspirin (Aspirin EC Low Dose) 81 Mg Ectab 81 MG PO QAM for 30 Days, #30 TABS Take 1 tablet by mouth daily. Atorvastatin (Atorvastatin Calcium) 20 Mg Tab 20 MG PO DAILY for 30 Days, #30 TAB Take 1 tablet by mouth once daily. Continued Medications: Glipizide (Glucotrol) 5 Mg Tab 1 TAB PO DAILY for 90 Days, #90 TAB 3 Refills [place]-3 Fatty Acids (Fish Oil) 1,000 Mg Cap 1000 MG PO DAILY Discharge Exam Patient's daughter is at bedside to provide translations. Patient reports feeling well. She denies any dizziness, palpitations, chest tightness or pain, shortness of breath, diaphoresis, numbness or tingling. She is anxious for discharge. Review of Systems: Constitutional: No fever, No chills, No sweats Eyes: No worsening of vision, No eye pain, No diplopia ENT: No hearing loss, No sore throat, No trouble swallowing Respiratory: No cough, No wheezing, No shortness of breath Cardiovascular: No chest pain, No claudication, No palpitations Abdomen: No pain, No nausea, No vomiting Musculoskeletal: No joint pain, No muscle pain Genitourinary - Female: No dysuria, No urinary retention, No hematuria Neurologic: No paralysis, No weakness, No numbness/tingling Integumentary: No rash, No itch, No color change Physical Exam: General Appearance: WD/WN, no apparent distress Eyes: normal inspection, PERRL, EOMI ENT: normal ENT inspection, hearing grossly normal, pharynx normal Neck: supple, no JVD, trachea midline Respiratory/Chest: lungs clear, normal breath sounds, no respiratory distress Cardiovascular: regular rate, rhythm, no gallop, no murmur Abdomen / GI: normal bowel sounds, non tender, soft Extremities: normal inspection, no calf tenderness, no pedal edema Neurologic/Psychiatric: alert, normal mood/affect, oriented x 3 Skin: normal color, warm/dry, no rash (Cassie Morrison, JOHANNA) Hospital Course 57 y/o female with a history of DM II, HLD, and GERD who presented to the ED on 04/08 with chest tightness, palpitations, shortness of breath, dizziness and diaphoresis. Patient developed these symptoms denies prior to arrival. The symptoms did spontaneously resolve. On arrival patient is afebrile and vital signs are stable. [id number] troponin is negative. EKG shows no ischemic changes but is positive for 1st degree AV block. Labs are grossly within normal limits however the patient does have an elevated TSH of 6.95. Chest pain rule out--patient denies pain per se but did complain of palpitations , diaphoresis, SOB and chest tightness. As a female over 50 and diabetic, could present atypically -Admit to telemetry for observation. No acute events overnight. Pt remained in SR with HR between 50s-70s -Cardiac enzymes negative x 3 -Attempted exercise stress echo on 04/08, but pt developed dizziness and could not continue on treadmill. Dobutamine stress echo completed 04/09 and was normal -Lipid profile 04/08: total cholesterol 209, triglycerides 106, LDL 134, HDL 54 -HgbA1c 04/08 was 6.7 -Calculated pt's CVD risk based on ACC/AHA 2013 guidelines. Recommended that she be on moderate dose statin -Start Lipitor 20 mg PO qd and ASA 81 mg PO qd -Cardiology consulted, appreciate recs: Unknown cause of 1st degree AV block. Observe overnight to see if pt develops higher degree of heart block. If nothing on monitor while in hospital, consider event monitor for one month. Agree with stress echo. -EKGs continue to show no ischemic changes, sinus rhythm, 1st degree AV block persists Diabetes mellitus type 2--last hemoglobin A1c and hospital records is from 2011. Patient states that she checks her blood sugars regularly at home and they average around 125 -A1c as above -Hold glipizide. may resume on d/c -Insulin sliding scale -Check BSGs q ac and qhs HLD--patient had previously been on Lipitor but was told by her doctor that she did not need to be on this anymore. No lipid panel in hospital records -Continue fish oil -Based on CVD risk, will restart Lipitor at 20 mg Elevated TSH--no known history of thyroid dysfunction -TSH 6.95 -Free T4 and free T3 WNL -Likely subclinical hypothyroidism, no tx needed at this time -Should recheck thyroid function tests in 3-4 weeks with PCP as an outpt GERD--pt states happens occasionally, no meds for this DVT prophylaxis -Enoxaparin 30 mg SC q24h -CASS racheal and SCDs Code Status -Level I, FULL RESUSCITATION STATUS This chart was completed in part utilizing [employer] Speech Voice Recognition software. Attempts were made to minimize the grammatical errors, random word insertions, pronoun errors and incomplete sentences. Any formal questions or concerns about the content, text or information contained within the body of this dictation should be directly addressed to the provider for clarification. Total Time Spent: Greater than 30 minutes This includes examination of the patient, discharge planning, medication reconciliation, and communication with other providers. (Cassie Morrison ., JOHANNA) Discharge Instructions Please refer to the electronic Patient Visit Report (Discharge Instructions) for additional information. (Cassie Morrison .JOHANNA) Additional Copies To Bekah Macias CRNP Reviewed: Pt Seen/Exam by Me (So Christian MD) History Physician [employer] Agent Team Member Supervision Note: I interviewed and examined the patient. Discussed with RHONDA Morrison and agree with findings and plan as documented in the note. Any exceptions or clarifications are listed here: Patient admitted for heart palpitations with lightheadedness and sense of impending doom with shortness of breath. Stress test with excellent exercise capacity, negative for ischemia. 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 Vitals and telemetry reviewed No acute distress, thin Regular rate and rhythm, no murmurs gallops or rubs, no carotid bruits Clear to auscultation bilaterally, breathing unlabored Abdomen positive bowel sounds soft nontender nondistended Extremities no edema 57-year-old female with history of diabetes and hyperlipidemia, here with heart palpitations and lightheadedness with diaphoresis and shortness of breath lasting several minutes. She is ruled out for acute coronary syndrome. Transthoracic echo with diastolic dysfunction but otherwise okay. Stress ECHO negative for ischemia. Not likely to have been cardiac ischemia-related, but could have had a higher degree heart block--> recommend event monitor as outpatient which is to be scheduled -reduce stress in life -Subclinical hypothyroidism-suggest follow-up thyroid function tests in 3-4 weeks as an outpatient -Start moderate intensity statin, continue daily aspirin -stable for dc to home Documented By: So Christian (So Christian MD)
--- NOTE | 2017-04-09 14:51 | EXERCISE STRESS ECHO ---
*NOTICE TO RECEIVING CONSTITUTION PARTY AGENCY This information is strictly Confidential and protected under [place] law. [place] law prohibits you from making any further disclosure of this information unless further disclosure is expressly permitted by the written consent of the person to whom it pertains or is authorized by law. A general authorization for the release of medical or other information is not sufficient for this purpose. Hospital accepts no responsibility if the information is made available to any other person, INCLUDING THE PATIENT. Interpretation Summary * Name: LUKE PINEDO Study Date: 04/09/2017 12:35 PM BP: 139/78 mmHg * Patient Location: [facility]\S\N275\S\1 HR: 71 * : 1960 (M/d/yyyy) Gender: Female Height: 60 in * Age: 57 yrs Ethnicity: Weight: 122 lb * Ordering Physician: Cassie Morrison * Referring Physician: Self, Referred * Performed By: Louise Muñoz RDCS * * Reason For Study: Chest pain * BSA: 1.5 m2 * -- Conclusions -- * Normal maximal exercise echocardiogram without inducible ischemia. Procedure Details * ECHOEX, CPT #50326 Left Ventricular Findings with Stress * Normal maximal exercise echocardiogram without inducible ischemia. Stress Parameters * The stress portion of this study was personally supervised by the undersigned interpreting physician. * Rest heart rate was '71' BPM. * Rest blood pressure was '139/78' * Maximum heart rate achieved was 142 bpm. * Maximum heart rate was 88 % of maximum age-predicted heart rate. * Maximum blood pressure was '155/83' * Total exercise time was '9:00' * Maximum exercise MET level achieved was '10.10' METS * Maximum treadmill speed was '3.40' miles per hour. * Maximum treadmill elevation was '14.00'% grade. * Exercise was terminated due to 'achieving target heart rate' Left Ventricular Findings with Stress * The baseline EKG was normal. There were no significant EKG changes during the test Baseline echocardiogram was normal. There was normal augmentation during exercise and no inducible wall motion abnormalities No symptoms were reported Normal HR and BP response to exercise Castro treadmill score: 9 (low risk)
[2017-04-09 15:57] VITALS: BP 104/68; PULSE 70; TEMP 36.6; O2SAT 93
[2017-04-09 17:31] VITALS: BP 104/68; PULSE 70; TEMP 36.6; O2SAT 93
[2017-04-10] MEDS ORDERED: ENOXAPARIN 40 MG/0.4 ML SYR SC SCH (09:00)
== END 2017-04-09 18:49 | disposition home or self-care (01) ==
LOC: ENRESERVTM → ENRESERVDT → C.EDB 05:39 → C.MED 08:48
PROVIDERS: ADMIT Family Medicine; ATTEND Family Medicine
DX: R42 Dizziness and giddiness (principal); R00.2 Palpitations; R07.89 Other chest pain; E11.9 Type 2 diabetes mellitus without complications; E78.5 Hyperlipidemia, unspecified; K21.9 Gastro-esophageal reflux disease without esophagitis; E78.00 Pure hypercholesterolemia, unspecified; I44.0 Atrioventricular block, first degree; Z82.3 Family history of stroke; Z83.3 Family history of diabetes mellitus

== ENCOUNTER 2017-04-22 16:31 | Emergency (ER) | payer OTHER ==
[~2017-04-22] VITALS: Ht 154.9 cm; Wt 55.6 kg
[~2017-04-22 16:31] MED LIST: ASPEC81 PO; GLIP5TAB11 PO; LPT20 PO; OMEG10002 PO
[2017-04-22 16:40] VITALS: TEMP 36.5; Ht 154.9 cm; Wt 55.6 kg
[2017-04-22] MEDS ORDERED: SODIUM CHLORIDE 0.9% 1000ML 1,000 ML IV STA (17:03)
[2017-04-22] MEDS ORDERED: CYAN100T6 PO (17:12)
[2017-04-22] MEDS ORDERED: VITAMIN D PO (17:15)
[2017-04-22 17:34] LABS: BASO % 0.6 %; BASO ABS # 0.03 K/uL (0-0.2); COMPLETE YES; EOS % 1.6 %; HEMATOCRIT 38.6 % (37-47); IG% 0.2 %; LYMPH % 36.4 %; LYMPH ABS # 1.81 K/uL (1.2-3.4); MEAN CELL VOLUME 88.9 fL (80-100); MEAN CORPUSCULAR HEMOGLOBIN 29.5 pg (25-34); MEAN CORPUSCULAR HGB CONC 33.2 g/dl (32-36); MEAN PLATELET VOLUME 9.8 fL (7.4-10.4); MONO % 6.4 %; NEUT % 54.8 %; PLATELET COUNT 192 K/uL (130-400); RED BLOOD COUNT 4.34 M/uL (4.2-5.4); WHITE BLOOD COUNT 4.97 K/uL (4.8-10.8)
--- NOTE | 2017-04-22 17:51 | DIAGNOSTIC IMAGING REPORT ---
SINGLE VIEW CHEST CLINICAL HISTORY: Dizziness. Lightheaded. FINDINGS: An AP, portable, upright chest radiograph is compared to study dated 04/08/2017. The examination is degraded by portable technique and patient rotation. The heart is enlarged and there is atherosclerotic calcification of the thoracic aorta. The pulmonary vasculature is noncongested. Nonspecific interstitial thickening is similar to previous. No airspace consolidation or pleural effusion is identified. There is no pneumothorax. The skeletal structures are osteopenic. Degenerative change is noted in the thoracic spine. IMPRESSION: Cardiomegaly with no acute cardiopulmonary abnormality. No significant change from 04/08/2017. Electronically signed by: Dale Saldana M.D. 04/22/2017 5:49 PM Dictated Date/Time: 04/22/2017 5:48 PM
[2017-04-22 17:52] LABS: ALT/SGPT 37 U/L (12-78); AST/SGOT 17 U/L (15-37); BLOOD UREA NITROGEN 11 mg/dl (7-18); BUN/CREATININE RATIO 18.4 (10-20); CALCIUM 8.7 mg/dl (8.5-10.1); CARBON DIOXIDE 28 mmol/L (21-32); CHLORIDE 107 mmol/L (98-107); GLUCOSE 117 mg/dl (70-99); MAGNESIUM 2.6 mg/dl (1.8-2.4); POTASSIUM 3.5 mmol/L (3.5-5.1); SODIUM 142 mmol/L (136-145)
[2017-04-22 17:57] LABS: ALB/GLOB RATIO 1.2 (0.9-2); ALKALINE PHOSPHATASE 103 U/L (45-117)
--- NOTE | 2017-04-22 18:00 | DIAGNOSTIC IMAGING REPORT ---
CT SCAN OF THE BRAIN WITHOUT IV CONTRAST CLINICAL HISTORY: Dizziness. Lightheadedness. COMPARISON STUDY: No priors. TECHNIQUE: Unenhanced axial CT scan of the brain is performed from the vertex to the skull base. Automated dose control exposure was utilized. CT DOSE: 537.48 mGy.cm FINDINGS: Brain parenchyma: The brain parenchyma is normal in appearance. There is no hemorrhage, mass effect, or evidence of acute territorial ischemia by CT criteria. Mitchell-white matter is preserved. No extra-axial fluid collection is seen. Ventricles, sulci, cisterns: Normal in configuration. Intracranial vasculature: The visualized intracranial vasculature at the skull base is normal in appearance. Calvarium: Unremarkable. Sinuses and mastoids: The visualized paranasal sinuses are clear. The mastoid air cells are well pneumatized. Orbits: The bony orbits are grossly intact. IMPRESSION: There is no hemorrhage, mass effect, or evidence of acute territorial ischemia by CT criteria. Electronically signed by: Dale Saldana M.D. 04/22/2017 5:58 PM Dictated Date/Time: 04/22/2017 5:57 PM
--- NOTE | 2017-04-22 19:21 | EMERGENCY ROOM VISIT NOTE ---
History First contact with patient: 16:44 Chief Complaint: DIZZY Stated Complaint: DIZZINESS Nursing Triage Summary: Pt reports dizziness that began this AM. Reports has had simila symptoms in past. History of Present Illness The patient is a 57 year old female who presents to the Emergency Room with complaints of dizziness on and off for the past several weeks. The patient was here 2 weeks ago with similar symptoms. At that time, she also had chest pain and shortness of breath and was admitted for a cardiac workup. She was discharged home to follow-up with her primary care provider. She states that her dizziness became constant today. She describes it as a "weird feeling" in her head. She states it does not feel like the room is spinning. She reports the symptoms are better when she is sitting, but worse when she is standing or walking around. She denies any current chest pain, shortness of breath, nausea/ vomiting, headache or neck pain. She denies any fevers or chills. She has not followed up with her primary care provider regarding her symptoms. Review of Systems A complete 10 point review of systems was reviewed with the patient with pertinent positives and negatives as per history of present illness. All else were negative. Past Medical/Surgical History Medical Problems: (1) Dizziness (2) Palpitations Family History Diabetes mellitus MOTHER Hypertension Oral cancer BROTHER Stroke FATHER Social History Smoking Status: Never Smoker Drug Use: none Marital Status: Housing Status: lives with family Current/Historical Medications Scheduled Aspirin (Aspirin EC Low Dose), 81 MG PO QAM Atorvastatin (Atorvastatin Calcium), 20 MG PO DAILY Cyanocobalamin (Vitamin B12 100 Mcg), 200 MCG PO DAILY Glipizide (Glucotrol), 1 TAB PO DAILY [place]-3 Fatty Acids (Fish Oil), 1,000 MG PO DAILY [Vitamin D], Unknown Dose PO DAILY Allergies Coded Allergies: No Known Allergies (Unverified , 04/22/17) Physical Exam Vital Signs Date Time Temp Pulse Resp B/P (MAP) Pulse Ox O2 Delivery O2 Flow Rate FiO2 04/22/17 19:48 76 18 120/80 98 04/22/17 19:02 78 20 118/83 98 Room Air 04/22/17 18:18 57 18 125/72 97 Room Air 04/22/17 17:24 57 04/22/17 17:18 60 16 120/72 96 Room Air 63 136/83 67 128/85 04/22/17 16:40 36.5 67 16 120/84 97 Room Air Physical Exam VITALS: Vitals are noted on the nurse's note and reviewed by myself. Vital signs stable. GENERAL: This is a 57-year-old female, in no acute distress, nondiaphoretic, well-developed well-nourished. SKIN: The skin was without rashes. HEAD: Normocephalic atraumatic. EARS: External auditory canals clear, tympanic membranes pearly mitchell without erythema or effusion bilaterally. EYES: Pupils equal round and reactive to light and accommodation. Conjunctivae without injection, sclerae without icterus. Extraocular movements intact. MOUTH: Mucous membranes moist. Tonsils are not enlarged. Pharynx without erythema or exudate. NECK: Supple without nuchal rigidity. No lymphadenopathy. HEART: Regular rate and rhythm without murmurs gallops or rubs. LUNGS: Clear to auscultation bilaterally without wheezes, rales or rhonchi. ABDOMEN: Soft, nontender. MUSCULOSKELETAL: Full range of motion throughout. Strength 5/5 throughout. Normal gait. NEURO: Patient was alert and oriented to person place and time. Normal sensation to light and sharp touch. No focal neurological deficits. Normal finger to nose testing. Normal rapid alternating movements. Medical Decision & Procedures ER Provider Diagnostic Interpretation: SINGLE VIEW CHEST FINDINGS: An AP, portable, upright chest radiograph is compared to study dated 04/08/2017. The examination is degraded by portable technique and patient rotation. The heart is enlarged and there is atherosclerotic calcification of the thoracic aorta. The pulmonary vasculature is noncongested. Nonspecific interstitial thickening is similar to previous. No airspace consolidation or pleural effusion is identified. There is no pneumothorax. The skeletal structures are osteopenic. Degenerative change is noted in the thoracic spine. IMPRESSION: Cardiomegaly with no acute cardiopulmonary abnormality. No significant change from 04/08/2017. CT SCAN OF THE BRAIN WITHOUT IV CONTRAST FINDINGS: Brain parenchyma: The brain parenchyma is normal in appearance. There is no hemorrhage, mass effect, or evidence of acute territorial ischemia by CT criteria. Mitchell-white matter is preserved. No extra-axial fluid collection is seen. Ventricles, sulci, cisterns: Normal in configuration. Intracranial vasculature: The visualized intracranial vasculature at the skull base is normal in appearance. Calvarium: Unremarkable. Sinuses and mastoids: The visualized paranasal sinuses are clear. The mastoid air cells are well pneumatized. Orbits: The bony orbits are grossly intact. IMPRESSION: There is no hemorrhage, mass effect, or evidence of acute territorial ischemia by CT criteria. Laboratory Results 04/22/17 17:25 Red Blood Count 4.34, Mean Corpuscular Volume 88.9, Mean Corpuscular Hemoglobin 29.5, Mean Corpuscular Hemoglobin Concent 33.2, Mean Platelet Volume 9.8, Neutrophils (%) (Auto) 54.8, Lymphocytes (%) (Auto) 36.4, Monocytes (%) (Auto) 6.4, Eosinophils (%) (Auto) 1.6, Basophils (%) (Auto) 0.6, Neutrophils # (Auto) 2.72, Lymphocytes # (Auto) 1.81, Monocytes # (Auto) 0.32, Eosinophils # (Auto) 0.08, Basophils # (Auto) 0.03 04/22/17 17:25 Test 04/22/17 17:25 White Blood Count 4.97 K/uL (4.8-10.8) Red Blood Count 4.34 M/uL (4.2-5.4) Hemoglobin 12.8 g/dL (12.0-16.0) Hematocrit 38.6 % (37-47) Mean Corpuscular Volume 88.9 fL (80-100) Mean Corpuscular Hemoglobin 29.5 pg (25-34) Mean Corpuscular Hemoglobin Concent 33.2 g/dl (32-36) Platelet Count 192 K/uL (130-400) Mean Platelet Volume 9.8 fL (7.4-10.4) Neutrophils (%) (Auto) 54.8 % Lymphocytes (%) (Auto) 36.4 % Monocytes (%) (Auto) 6.4 % Eosinophils (%) (Auto) 1.6 % Basophils (%) (Auto) 0.6 % Neutrophils # (Auto) 2.72 K/uL (1.4-6.5) Lymphocytes # (Auto) 1.81 K/uL (1.2-3.4) Monocytes # (Auto) 0.32 K/uL (0.11-0.59) Eosinophils # (Auto) 0.08 K/uL (0-0.5) Basophils # (Auto) 0.03 K/uL (0-0.2) RDW Standard Deviation 41.9 fL (36.4-46.3) RDW Coefficient of Variation 12.9 % (11.5-14.5) Immature Granulocyte % (Auto) 0.2 % Immature Granulocyte # (Auto) 0.01 K/uL (0.00-0.02) Anion Gap 7.0 mmol/L (3-11) Est Creatinine Clear Calc Drug Dose 76.1 ml/min Estimated GFR () 115.6 Estimated GFR (Non- 99.8 BUN/Creatinine Ratio 18.4 (10-20) Calcium Level 8.7 mg/dl (8.5-10.1) Magnesium Level 2.6 mg/dl (1.8-2.4) Total Bilirubin 0.5 mg/dl (0.2-1) Aspartate Amino Transf (AST/SGOT) 17 U/L (15-37) Alanine Aminotransferase (ALT/SGPT) 37 U/L (12-78) Alkaline Phosphatase 103 U/L (45-117) Troponin I < 0.015 ng/ml (0-0.045) Total Protein 7.8 gm/dl (6.4-8.2) Albumin 4.2 gm/dl (3.4-5.0) Globulin 3.6 gm/dl (2.5-4.0) Albumin/Globulin Ratio 1.2 (0.9-2) Medications Administered Medications (Trade) Dose Ordered Sig/Shahriar Route Start Time Stop Time Status Last Admin Dose Admin Sodium Chloride 1,000 ml @ 999 mls/hr Q1H1M STAT IV 04/22/17 17:03 04/22/17 18:03 DC 04/22/17 17:34 999 MLS/HR ECG Rate (beats per minute): 57 Rhythm: sinus bradycardia Findings: 1st degree AV block, no acute ischemic change, no ectopy Change: no significant change ED Course The patient was evaluated as above. Labs were drawn and IV access was obtained. Patient was medicated with 1 liter NSS. Patient was reevaluated and stated she was feeling better. Discharge instructions were reviewed with the patient. The patient verbalized understanding of my assessment and treatment plan and was discharged home in good condition. Medical Decision Differential diagnosis includes BPPV, CVA, mass, orthostatic hypotension, elect avoid abnormalities, among others. The patient is a 57-year-old female who presents today complaining of dizziness. Labs revealed no leukocytosis, anemia or concerning electrolyte abnormalities. Troponin was not elevated. Chest x-ray and head CT were unremarkable. EKG was interpreted by myself and shows a first-degree AV block, which is unchanged from the patient's previous visit. Orthostatic vital signs were negative. The patient did feel better after sitting in the emergency department for a few hours. I discussed the findings with the patient and her daughter. I recommended that she follow-up with the primary care provider for further evaluation of her symptoms. She did have a full cardiac workup completed a few weeks ago during her admission. She is to return with any worsening or new/concerning symptoms. The patient's case was reviewed with Dr. Qureshi, ED attending physician, who agreed with my assessment and treatment plan. Based on the patient's presentation and work up, I feel the patient is stable for outpatient treatment. The patient was educated to return to the emergency department for any worsening of their current condition or new/concerning symptoms. She will follow up with her primary care provider. Medication reconciliation: I attest that I have personally reviewed the patient 's current medication list. Blood pressure screening: Patient was found to have normal blood pressure on screening and does not require follow-up. Impression Primary Impression: Dizziness Departure Information Dispostion Home / Self-Care Condition GOOD Referrals Bekah Macias CRNP (PCP) Patient Instructions My [facility] Additional Instructions Rest and drink plenty of fluids. You should call and schedule a follow-up appointment with your primary care provider's office by the end of the week. Return to the emergency department with any worsening or new/concerning symptoms.
[2017-04-22 19:48] VITALS: BP 120/80; PULSE 76; O2SAT 98
== END 2017-04-22 19:50 | disposition home or self-care (01) ==
LOC: C.EDB 16:33 → C.EDC 19:50
DX: R42 Dizziness and giddiness (principal); Z79.82 Long term (current) use of aspirin; Z79.899 Other long term (current) drug therapy; Z83.3 Family history of diabetes mellitus; Z82.49 Family history of ischemic heart disease and other diseases of the circulatory system; Z82.3 Family history of stroke

== ENCOUNTER 2017-05-09 17:18 | Emergency (ER) | payer OTHER ==
[~2017-05-09] VITALS: Ht 154.9 cm; Wt 56.0 kg
[~2017-05-09 17:18] MED LIST changes: -LORA-741 PO
[2017-05-09 17:22] VITALS: TEMP 36.9
[2017-05-09] MEDS ORDERED: SODIUM CHLORIDE 0.9% 1000ML 1,000 ML IV STA (18:18)
[2017-05-09] MEDS ORDERED: LORAZEPAM 0.5 MG TAB SL STA (18:25)
[2017-05-09 18:26] LABS: BASO % 0.5 %; BASO ABS # 0.02 K/uL (0-0.2); COMPLETE YES; EOS % 1.4 %; HEMATOCRIT 37.8 % (37-47); IG% 0.2 %; LYMPH % 34.6 %; LYMPH ABS # 1.44 K/uL (1.2-3.4); MEAN CELL VOLUME 89.4 fL (80-100); MEAN CORPUSCULAR HGB CONC 33.6 g/dl (32-36); MEAN PLATELET VOLUME 9.9 fL (7.4-10.4); MONO % 6.3 %; PLATELET COUNT 173 K/uL (130-400); RED BLOOD COUNT 4.23 M/uL (4.2-5.4); WHITE BLOOD COUNT 4.16 K/uL (4.8-10.8)
[2017-05-09 18:39] LABS: ALT/SGPT 43 U/L (12-78); BLOOD UREA NITROGEN 12 mg/dl (7-18); BUN/CREATININE RATIO 18.9 (10-20); CALCIUM 8.5 mg/dl (8.5-10.1); CARBON DIOXIDE 25 mmol/L (21-32); CHLORIDE 108 mmol/L (98-107); CREATININE 0.63 mg/dl (0.60-1.20); GLUCOSE 214 mg/dl (70-99); MAGNESIUM 2.4 mg/dl (1.8-2.4); POTASSIUM 3.4 mmol/L (3.5-5.1); SODIUM 142 mmol/L (136-145)
--- NOTE | 2017-05-09 18:43 | DIAGNOSTIC IMAGING REPORT ---
CHEST ONE VIEW PORTABLE CLINICAL HISTORY: EVALUATE WEAKNESS mental status change COMPARISON STUDY: 04/22/2017 FINDINGS: Mild stable cardiomegaly. Lungs are clear. Small focal parenchymal scar right pulmonary apex unchanged. No acute infiltrate. IMPRESSION: Mild stable cardiomegaly. Chronic change. No acute process. Electronically signed by: Sudheer Alfaro M.D. 05/09/2017 6:42 PM Dictated Date/Time: 05/09/2017 6:41 PM
[2017-05-09 18:50] LABS: ALKALINE PHOSPHATASE 90 U/L (45-117); AST/SGOT 22 U/L (15-37); THYROID STIMULATING HORMONE 0.825 uIu/ml (0.300-4.500)
[2017-05-09 19:10] VITALS: O2SAT 96
[2017-05-09 19:17] VITALS: PULSE 63
[2017-05-09 19:39] LABS: INR 0.9 (0.9-1.1)
[2017-05-09 19:45] LABS: URINE APPEARANCE CLEAR (CLEAR); URINE BILIRUBIN NEG (NEG); URINE COLOR YELLOW; URINE NITRITE NEG (NEG); URINE PH 6.5 (4.5-7.5); URINE SPECIFIC GRAVITY 1.017 (1.000-1.030); UROBILINOGEN NEG (NEG)
[2017-05-09 20:00] LABS: MANUAL MICROSCOPIC REQUIRED? NO; REVIEW REQ? NO
[2017-05-09] MEDS ORDERED: LORA-741 PO (20:09)
[2017-05-09 20:38] VITALS: BP 108/69; O2SAT 100
--- NOTE | 2017-05-09 21:06 | EMERGENCY ROOM VISIT NOTE ---
History Report prepared by Leonel: Douglas Rodriguez Under the Supervision of: Dr. Bo Mixon M.D. First contact with patient: 18:18 Chief Complaint: PALPITATIONS Stated Complaint: LEFT ARM RADIATING PAIN, HEART TROUBLE History of Present Illness The patient is a 57 year old female who presents to the Emergency Room with complaints of intermittent chest pain that started 3 weeks ago. 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 The patient started having radiating left shoulder, neck, and back pain that started a few days ago, and she started having pain going down her left arm this morning. She states that her "heart feels unstable" and she currently feels disoriented. The patient notes that she thinks she is having an anxiety attack, and she wants medication for this. She adds that she has been having faint tingling in her feet the past few days. Per the patient's daughter, the patient has been experiencing a lot of stress recently, including the of the patient's and mother, in addition to her children moving away. The patient is used to have a full house with lots of family, so this is stressful for her. She notes that the thought of going to work in the morning makes her symptoms worse. She had a stress echo done on April 09, and nothing abnormal was found. Pt denies LOC, headache, fevers, chills, diaphoresis, visual changes , breathing difficulties, nausea, vomiting, abdominal pain, melena, hematochezia , urinary symptoms, weakness, lymphadenopathy, rash, or other complaints. Source of History: patient, family (daughter as hand inspector) Onset: 3 weeks ago Position: chest Timing: intermittent Modifying Factors (Worsening): other (stress, thought of going to work) Associated Symptoms: + neck pain (left), + back pain Note: Associated symptoms: Left shoulder pain, pain going down left arm. Says she is having an anxiety attack, has been having lots of stress recently. Tingling in feet past few days. "Heart feels unstable", patient feels unstable. Feels disoriented currently. Review of Systems See HPI for pertinent positives and negatives. A total of ten systems were reviewed and were otherwise negative. Past Medical & Surgical Medical Problems: (1) Dizziness (2) Palpitations Family History Diabetes mellitus MOTHER Hypertension Oral cancer BROTHER Stroke FATHER Social History Smoking Status: Never Smoker Drug Use: none Marital Status: Housing Status: lives with family Current/Historical Medications Scheduled Aspirin (Aspirin EC Low Dose), 81 MG PO QAM Atorvastatin (Atorvastatin Calcium), 20 MG PO DAILY Cyanocobalamin (Vitamin B12 100 Mcg), 200 MCG PO DAILY Glipizide (Glucotrol), 1 TAB PO DAILY [place]-3 Fatty Acids (Fish Oil), 1,000 MG PO DAILY [Vitamin D], Unknown Dose PO DAILY Scheduled PRN Lorazepam (Ativan), 0.5 MG PO Q6H PRN for Anxiety/Agitation Allergies Coded Allergies: No Known Allergies (Unverified , 04/22/17) Physical Exam Vital Signs Date Time Temp Pulse Resp B/P (MAP) Pulse Ox O2 Delivery O2 Flow Rate FiO2 05/09/17 20:38 108/69 100 05/09/17 19:17 63 18 118/71 95 Room Air 05/09/17 19:10 96 Room Air 05/09/17 19:10 96 Room Air 05/09/17 18:18 66 05/09/17 18:08 65 16 102/62 96 Room Air 05/09/17 17:28 Room Air 05/09/17 17:22 36.9 70 20 106/67 96 Room Air Physical Exam GENERAL: Awake, alert, mildly anxious-appearing, in no distress HENT: Normocephalic, atraumatic. Oropharynx unremarkable. EYES: Normal conjunctiva. Sclera non-icteric. NECK: Supple. No nuchal rigidity. FROM. No JVD. RESPIRATORY: Clear to auscultation. CARDIAC: Regular rate, normal rhythm. Extremities warm and well perfused. Pulses equal. ABDOMEN: Soft, non-distended. No tenderness to palpation. No rebound or guarding. No masses. RECTAL: Deferred. MUSCULOSKELETAL: Chest examination reveals no tenderness. Left trapezius tenderness. The back is symmetrical on inspection without obvious abnormality. There is no CVA tenderness to palpation. No joint edema. LOWER EXTREMITIES: Calves are equal size bilaterally and non-tender. No edema. No discoloration. NEURO: Normal sensorium. No sensory or motor deficits noted. SKIN: No rash or jaundice noted. Medical Decision & Procedures ER Provider Diagnostic Interpretation: X-ray: Per my interpretation, radiologist review. CHEST ONE VIEW PORTABLE CLINICAL HISTORY: EVALUATE WEAKNESS mental status change COMPARISON STUDY: 04/22/2017 FINDINGS: Mild stable cardiomegaly. Lungs are clear. Small focal parenchymal scar right pulmonary apex unchanged. No acute infiltrate. IMPRESSION: Mild stable cardiomegaly. Chronic change. No acute process. Electronically signed by: Sudheer Alfaro M.D. 05/09/2017 6:42 PM Dictated Date/Time: 05/09/2017 6:41 PM Laboratory Results 05/09/17 18:10 Red Blood Count 4.23, Mean Corpuscular Volume 89.4, Mean Corpuscular Hemoglobin 30.0, Mean Corpuscular Hemoglobin Concent 33.6, Mean Platelet Volume 9.9, Neutrophils (%) (Auto) 57.0, Lymphocytes (%) (Auto) 34.6, Monocytes (%) (Auto) 6.3, Eosinophils (%) (Auto) 1.4, Basophils (%) (Auto) 0.5, Neutrophils # (Auto) 2.37, Lymphocytes # (Auto) 1.44, Monocytes # (Auto) 0.26, Eosinophils # (Auto) 0.06, Basophils # (Auto) 0.02 05/09/17 18:10 Test 05/09/17 00:00 05/09/17 18:10 05/09/17 19:10 Urine Color YELLOW Urine Appearance CLEAR (CLEAR) Urine pH 6.5 (4.5-7.5) Urine Specific [place] 1.017 (1.000-1.030) Urine Protein NEG (NEG) Urine Glucose (UA) NEG (NEG) Urine Ketones NEG (NEG) Urine Occult Blood NEG (NEG) Urine Nitrite NEG (NEG) Urine Bilirubin NEG (NEG) Urine Urobilinogen NEG (NEG) Urine Leukocyte Esterase NEG (NEG) White Blood Count 4.16 K/uL (4.8-10.8) Red Blood Count 4.23 M/uL (4.2-5.4) Hemoglobin 12.7 g/dL (12.0-16.0) Hematocrit 37.8 % (37-47) Mean Corpuscular Volume 89.4 fL (80-100) Mean Corpuscular Hemoglobin 30.0 pg (25-34) Mean Corpuscular Hemoglobin Concent 33.6 g/dl (32-36) Platelet Count 173 K/uL (130-400) Mean Platelet Volume 9.9 fL (7.4-10.4) Neutrophils (%) (Auto) 57.0 % Lymphocytes (%) (Auto) 34.6 % Monocytes (%) (Auto) 6.3 % Eosinophils (%) (Auto) 1.4 % Basophils (%) (Auto) 0.5 % Neutrophils # (Auto) 2.37 K/uL (1.4-6.5) Lymphocytes # (Auto) 1.44 K/uL (1.2-3.4) Monocytes # (Auto) 0.26 K/uL (0.11-0.59) Eosinophils # (Auto) 0.06 K/uL (0-0.5) Basophils # (Auto) 0.02 K/uL (0-0.2) RDW Standard Deviation 41.9 fL (36.4-46.3) RDW Coefficient of Variation 12.8 % (11.5-14.5) Immature Granulocyte % (Auto) 0.2 % Immature Granulocyte # (Auto) 0.01 K/uL (0.00-0.02) Anion Gap 9.0 mmol/L (3-11) Estimated GFR () 113.8 Estimated GFR (Non- 98.2 BUN/Creatinine Ratio 18.9 (10-20) Calcium Level 8.5 mg/dl (8.5-10.1) Magnesium Level 2.4 mg/dl (1.8-2.4) Total Bilirubin 0.3 mg/dl (0.2-1) Direct Bilirubin < 0.1 mg/dl (0-0.2) Aspartate Amino Transf (AST/SGOT) 22 U/L (15-37) Alanine Aminotransferase (ALT/SGPT) 43 U/L (12-78) Alkaline Phosphatase 90 U/L (45-117) Total Creatine Kinase 76 U/L (26-192) Creatine Kinase MB < 0.5 ng/ml (0.5-3.6) Creatine Kinase MB Ratio (0-3.0) Troponin I < 0.015 ng/ml (0-0.045) Total Protein 7.0 gm/dl (6.4-8.2) Albumin 3.7 gm/dl (3.4-5.0) Thyroid Stimulating Hormone (TSH) 0.825 uIu/ml (0.300-4.500) Prothrombin Time 10.0 SECONDS (9.0-12.0) Prothromb Time International Ratio 0.9 (0.9-1.1) Activated Partial Thromboplast Time 25.8 SECONDS (21.0-31.0) Partial Thromboplastin Ratio 1.0 Laboratory results reviewed by me Medications Administered Medications (Trade) Dose Ordered Sig/Shahriar Route Start Time Stop Time Status Last Admin Dose Admin Sodium Chloride 1,000 ml @ 125 mls/hr Q8H STAT IV 05/09/17 18:18 05/09/17 20:58 DC 05/09/17 19:14 125 MLS/HR Lorazepam (Ativan Tab) 0.5 mg NOW STAT SL 05/09/17 18:25 05/09/17 18:27 DC 05/09/17 19:14 0.5 MG ECG Indication: chest pain Rate (beats per minute): 65 Rhythm: normal sinus Findings: no acute ischemic change, no ectopy ED Course 1817: Ordered NSS 1000 ml @ 125 mls/hr IV. 1820: The patient was evaluated in room B12B. A complete history and physical exam was performed. 1824: Ordered Ativan Tab 0.5 mg SL. 1943: I reevaluated the patient and she is feeling better. 2011: I reevaluated the patient and all of her symptoms are gone. The patient verbally expressed understanding and agreement of the treatment plan. The patient will be discharged. Medical Decision Medication Reconciliation: I attest that I have personally reviewed the patient' s current medication list Blood pressure screening: Patient was found to have normal blood pressure on screening and does not require follow-up. Triage Nursing notes reviewed. The patient's presentation and history were concerning for palpitations and chest discomfort. Etiologies such as ectopy, cardiac dysrhythmia, electrolyte abnormality, thyroid dysfunction, pulmonary embolism, infection, gastrointestinal, anxiety , ischemia, as well as others were entertained. Prior records were reviewed. The patient has had extensive workups recently and these were unremarkable. The patient has had a stress echo last month and this was normal. The patient has had symptoms all day today. Her CBC, chemistry panel, cardiac markers and TSH were unremarkable except for mild hyperglycemia. Magnesium is normal. The patient and his daughter question whether this could be anxiety as she is under a lot of stress with recent deaths in the family and her children moving out of the house. The patient requested something for anxiety. She was hydrated and she was given a dose of Ativan 0.5 mg. On reassessment the patient felt significantly better and all of her symptoms resolved. This seems to be most consistent with anxiety and stress as opposed to a cardiac source or other electrolyte or pulmonary problem. The patient and daughter are very much in agreement. I discussed having a small amount of the medicine for the weekend and the patient felt very comfortable with this. Daughter was comfortable as well. Risks and benefits were discussed. Precautions were given. Prescription was sent to her pharmacy. She worsens in anyway the patient will be sent back to the emergency department's department for reevaluation. By the evaluation outlined above other emergent etiologies such as those listed in the differential, as well as others, were deemed relatively unlikely. The patient was educated about the findings as listed above. All questions were answered and the patient was pleased with the treatment. Return instructions were outlined and the patient was discharged in stable condition. The patient was referred to her PCP for follow-up for a recheck of the current condition Impression Primary Impression: Left sided chest pain Additional Impressions: Left arm pain Anxiety Scribe Attestation The scribe's documentation has been prepared under my direction and personally reviewed by me in its entirety. I confirm that the note above accurately reflects all work, treatment, procedures, and medical decision making performed by me. Departure Information Dispostion Home / Self-Care Prescriptions Lorazepam (ATIVAN) 0.5 Mg Tab 0.5 MG PO Q6H Y for Anxiety/Agitation, #10 TAB Prov: Bo Mixon MD 05/09/17 Referrals No Doctor, Assigned (PCP) Forms HOME CARE DOCUMENTATION FORM, IMPORTANT VISIT INFORMATION, WORK / SCHOOL INSTRUCTIONS Patient Instructions My [facility] Additional Instructions CHEST PAIN INSTRUCTIONS: DO NOT drive, drink alcohol, operate machinery, or perform dangerous activities today. You were given medications in the ER that can affect your ability to safely function or operate a vehicle. Ativan 0.5mg: Take one every 6 hours only as needed for severe anxiety. Do not drive if taking. May cause drowsiness. Do not take if you are at work or doing any activity where being under the influence may be dangerous. Acetaminophen(Tylenol) may be used for fever or pain. Use 1000mg every six hours as needed. Avoid using more than 3000mg in a 24 hour period. Rest and drink plenty of fluids as tolerated. Continue current medications. Avoid strenuous activities and anything that worsens your pain. Resume normal activities once your symptoms resolve. Return to the ER immediately for worsening or persistent chest pain, abdominal pain, vomiting, fevers, chest pains, difficulty breathing, worsening of your condition, or as needed. Follow up with your primary physician in 3 days for a recheck of your current condition. Problem Qualifiers
== END 2017-05-09 20:39 | disposition home or self-care (01) ==
LOC: C.EDB 17:19
DX: R07.9 Chest pain, unspecified (principal); M79.602 Pain in left arm; F41.9 Anxiety disorder, unspecified; Z83.3 Family history of diabetes mellitus; Z82.49 Family history of ischemic heart disease and other diseases of the circulatory system; Z82.3 Family history of stroke; Z80.8 Family history of malignant neoplasm of other organs or systems; Z79.82 Long term (current) use of aspirin

== ENCOUNTER → 2017-05-09 | Outpatient (CLI) | payer OTHER ==
[~2017-05-09] MED LIST changes: +CYAN100T6 PO; +LORA-741 PO; +VITAMIN D PO
[2017-05-09 12:31] LABS: BLOOD UREA NITROGEN 14 mg/dl (7-18); BUN/CREATININE RATIO 23.2 (10-20); CALCIUM 9.1 mg/dl (8.5-10.1); CARBON DIOXIDE 28 mmol/L (21-32); CHLORIDE 103 mmol/L (98-107); CREATININE 0.59 mg/dl (0.60-1.20); GLUCOSE 161 mg/dl (70-99); POTASSIUM 3.5 mmol/L (3.5-5.1); SODIUM 137 mmol/L (136-145)
[2017-05-09 12:41] LABS: THYROID STIMULATING HORMONE 0.924 uIu/ml (0.300-4.500)
== END | disposition home or self-care (01) ==
LOC: C.LAB1850 09:40
PROVIDERS: ATTEND Nurse Practitioner Adult Health
DX: R42 Dizziness and giddiness (principal); E03.9 Hypothyroidism, unspecified

== ENCOUNTER → 2017-09-26 | Outpatient (CLI) | payer OTHER ==
--- NOTE | 2017-09-26 09:11 | DIAGNOSTIC IMAGING REPORT ---
ULTRASOUND OF THE PELVIS CLINICAL HISTORY: Uterine mass.. COMPARISON STUDY: No priors. TECHNIQUE: Real-time, grayscale, and color flow sonography of the pelvis is performed both transabdominally and endovaginally. Images are reviewed in the transverse and longitudinal planes. FINDINGS: Uterus: The retroverted uterus is normal in size and heterogeneous in echotexture, measuring 6.7 x 4.5 x 5.7 cm. Endometrium: The endometrium is normal in appearance, and the endometrial stripe is normal in thickness measuring up to 0.5 cm. Ovaries: The ovaries were not visualized on the transabdominal or endovaginal imaging. Pelvis: There is no free fluid in the cul-de-sac. No concerning adnexal lesion is seen. IMPRESSION: 1. The retroverted uterus is mildly heterogeneous in echotexture. No focal uterine lesion is identified. 2. The ovaries were not visualized. No adnexal lesion is seen. Electronically signed by: Dale Saldana M.D. 09/26/2017 9:09 AM Dictated Date/Time: 09/26/2017 9:06 AM
== END | disposition home or self-care (01) ==
LOC: C.ULTRBC 08:29
PROVIDERS: ATTEND Physician Assistant
DX: N85.9 Noninflammatory disorder of uterus, unspecified (principal)

== ENCOUNTER → 2017-12-10 | Outpatient (CLI) | payer OTHER | END | disposition home or self-care (01) | LOC: C.PAPS 11:54 | PROVIDERS: ATTEND Obstetrics & Gynecology | DX: Z12.4 Encounter for screening for malignant neoplasm of cervix (principal); Z11.51 Encounter for screening for human papillomavirus (HPV); Z78.0 Asymptomatic menopausal state ==

== ENCOUNTER → 2018-03-17 | Outpatient (CLI) | payer OTHER ==
[~2018-03-17] MED LIST changes: -ASPEC81 PO; +ASPI-320 PO
[2018-03-17 10:02] LABS: ALBUMIN 4.2 gm/dl (3.4-5.0); ALKALINE PHOSPHATASE 105 U/L (45-117); ALT/SGPT 32 U/L (12-78); AST/SGOT 22 U/L (15-37); BLOOD UREA NITROGEN 14 mg/dl (7-18); CALCIUM 8.8 mg/dl (8.5-10.1); CARBON DIOXIDE 28 mmol/L (21-32); CHOLESTEROL 192 mg/dl (0-200); CREATININE 0.55 mg/dl (0.60-1.20); GLUCOSE 134 mg/dl (70-99); LDL CHOLESTEROL CALCULATED 131 mg/dl; POTASSIUM 3.8 mmol/L (3.5-5.1); SODIUM 139 mmol/L (136-145); TOTAL PROTEIN 7.6 gm/dl (6.4-8.2)
[2018-03-17 10:10] LABS: HEMOGLOBIN A1C 6.6 % (4.5-5.6)
== END | disposition home or self-care (01) ==
LOC: C.LAB1850 08:33
PROVIDERS: ATTEND Physician Assistant
DX: E11.9 Type 2 diabetes mellitus without complications (principal); E78.5 Hyperlipidemia, unspecified

== ENCOUNTER 2018-06-28 19:15 | Emergency (ER) | payer OTHER ==
[~2018-06-28] VITALS: Ht 152.4 cm; Wt 56.9 kg
[~2018-06-28 19:15] MED LIST changes: +ATOR-22 PO; +GLC/500 PO; -LPT20 PO
[2018-06-28 19:17] VITALS: TEMP 36.5; Ht 152.4 cm; Wt 56.9 kg
--- NOTE | 2018-06-28 19:56 | DIAGNOSTIC IMAGING REPORT ---
L FOOT MIN 3 VIEWS ROUTINE CLINICAL HISTORY: Left foot pain, ?foreign body just proximal to toes. COMPARISON: Left foot radiographs December 27, 2015. FINDINGS: Tarsometatarsal joints are intact. No acute fracture or radiopaque foreign bodies are identified within the left foot. A bipartite medial sesamoid of the left great toe is noted. Accessory ossicle along the navicular is noted. There is mild soft tissue swelling along the medial aspect of the left first metatarsophalangeal joint. IMPRESSION: 1. No acute fracture or radiopaque foreign body within the left foot. 2. 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 Electronically signed by: Geronimo Gallo M.D. 06/28/2018 7:55 PM Dictated Date/Time: 06/28/2018 7:52 PM
[2018-06-28] MEDS ORDERED: CEPHALEXIN 500MG HOME PACK 1 EA BTL PO STA (20:25)
[2018-06-28] MEDS ORDERED: DOXYCYCLINE HYCLATE 100 MG CAP PO STA (20:25)
[2018-06-28] MEDS ORDERED: DIPHTHERIA/TETANUS/PERTUSSIS 0.5 ML SYR/VIAL IM. ONE (20:30)
[2018-06-28] MEDS ORDERED: CEPH500C PO (20:43)
[2018-06-28] MEDS ORDERED: DOXY-300 PO (20:43)
--- NOTE | 2018-06-28 20:44 | EMERGENCY ROOM VISIT NOTE ---
History First contact with patient: 19:20 Chief Complaint: FOOT PAIN Stated Complaint: PROBLEM WITH MY FEET History of Present Illness The patient is a 58 year old female who presents to the Emergency Room via private vehicle with complaints of "problem with my feet". The patient does present with a language barrier, and has her daughter translate via phone. It was noted about 3-5 years ago the patient began with a large callus on the ball of her left foot. She notes that she was evaluated by a tennis desk team member who notes that would be okay as long as it does not enlarge. The patient notes that it is enlarged, and unfortunately at the posterior aspect where the callus meets the normal skin, it has cracked/opened up. She states that it has now been inflamed and over the past day or so has now turned reddened. She is concerned because she is diabetic. She denies any fevers, chills. Her sugar levels have been up and down but recently about a month ago medication was changed and have been better controlled. Pain is worse with walking on the foot. She rates the pain is a 2-3/10. She denies any fevers or chills. Unsure of her tetanus status. Review of Systems A complete 6-point Review of Systems was discussed with the patient, with pertinent positives and negatives listed in the History of Present Illness. All remaining Review of Systems questions can be considered negative unless otherwise specified. Past Medical/Surgical History Medical Problems: (1) Dizziness (2) Palpitations Family History Diabetes mellitus MOTHER Hypertension Oral cancer BROTHER Stroke FATHER Social History Smoking Status: Never Smoker Drug Use: none Marital Status: Housing Status: lives with family Current/Historical Medications Scheduled Atorvastatin (Lipitor), 20 MG PO DAILY Cephalexin Monohydrate (Keflex), 500 MG PO QID Cyanocobalamin (Vitamin B12 100 Mcg), 200 MCG PO DAILY Doxycycline (Monohydrate) (Doxycycline), 100 MG PO Q12 Glipizide (Glucotrol), 5 MG PO DAILY Metformin Hcl (Glucophage), 500 MG PO BID [place]-3 Fatty Acids (Fish Oil), 1,000 MG PO DAILY [Vitamin D], 1,000 UNITS PO DAILY Physical Exam Vital Signs Date Time Temp Pulse Resp B/P (MAP) Pulse Ox O2 Delivery O2 Flow Rate FiO2 06/28/18 21:13 68 17 148/82 97 Room Air 06/28/18 19:17 36.5 66 18 150/87 95 Room Air Physical Exam VITAL SIGNS - Vital signs and nursing notes were reviewed. Stable. Afebrile. Hypertensive. GENERAL -58-year-old female appearing her stated age who is in no acute distress. Communicates well with provider and answers questions appropriately. SKIN -the plantar surface of the patient's left foot just proximal to the MTP joint elicits a large callus it measures 2 cm x 2 cm and has a depth of approximately 0.5 cm. At the base of this where it meets the intact healthy skin, it appears to have created a crack/opening. This region is no erythematous without drainage. There is erythema now surrounding the posterior aspect of the callus. Remainder of the foot is within normal limits. Excellent neurovascular status distally. EXTREMITIES -skin changes as above. Full range of motion. No bony tenderness. Medical Decision & Procedures ER Provider Diagnostic Interpretation: L FOOT MIN 3 VIEWS ROUTINE CLINICAL HISTORY: Left foot pain, ?foreign body just proximal to toes. COMPARISON: Left foot radiographs December 27, 2015. FINDINGS: Tarsometatarsal joints are intact. No acute fracture or radiopaque foreign bodies are identified within the left foot. A bipartite medial sesamoid of the left great toe is noted. Accessory ossicle along the navicular is noted. There is mild soft tissue swelling along the medial aspect of the left first metatarsophalangeal joint. IMPRESSION: 1. No acute fracture or radiopaque foreign body within the left foot. 2. 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 Electronically signed by: Geronimo Gallo M.D. 06/28/2018 7:55 PM Dictated Date/Time: 06/28/2018 7:52 PM Medications Administered Medications (Trade) Dose Ordered Sig/Shahriar Route Start Time Stop Time Status Last Admin Dose Admin Diphtheria/ Pertussis/Tetanus Vacc (Adacel Inj) 0.5 ml ONCE ONCE IM. 06/28/18 20:30 06/28/18 20:31 DC 06/28/18 21:06 0.5 ML Cephalexin Monohydrate (Keflex 500MG Home Pack) 1 homepack NOW STAT PO 06/28/18 20:25 06/28/18 20:31 DC 06/28/18 21:05 1 HOMEPACK Doxycycline Hyclate (Vibramycin Cap) 100 mg NOW STAT PO 06/28/18 20:25 06/28/18 20:31 DC 06/28/18 21:05 100 MG Medical Decision Patient was seen and evaluated as above in room D5. Review was performed of nursing notes and vital signs. After obtaining a thorough history and physical examination the above work up was performed. She presents to us today with what appears to be cellulitis beginning at the proximal aspect of her callus where it meets the healthy skin. She is diabetic, therefore there is increased concern for her ability to heal and spread of infection. X-ray was obtained to rule out foreign body. No foreign body noted. I will add Keflex for strep coverage as well as doxycycline for any MRSA or other organisms which would not be covered by Keflex, as well as have her follow-up with the wound care center. We discussed benefit versus risk of other medications and believe that these 2 at this time are appropriate. I did enlist the help of our case therapist, Cassie, to help arrange this. She also met with the patient. During all of this the patient's daughter was on the phone to provide interpretation. I did clean the wound with sterile saline as well as Betadine, dried the wound, and dressed it with a bacitracin dressing. She is also to wear postop shoe. The shoe she is wearing now appears to be putting a lot of pressure on her feet which certainly could also contribute to the calluses. Tetanus was also updated today. Thorough discussion was had with the patient as well as daughter via phone regarding management and care. The daughter was able to explain all this to the patient, and also has a copy of the discharge instructions per it was also noted that the patient was living alone and they would help facilitate instruction for the patient. She was given the first dose of Keflex with a home pack here as well as doxycycline with the remainder sent to pharmacy. This was also explained. The patient was educated upon management, educated upon todays findings/results, educated upon symptoms in which to return, had questions answered prior to discharge, and was discharged home in good condition. Vital signs stable, she is nontoxic in appearance, I believe she stable for outpatient management. If she worsens she is to return. In the evaluation and treatment of this patient the following differential diagnoses were entertained: Cellulitis, fracture, dislocation, among others. Impression Primary Impression: Foot pain Additional Impression: Cellulitis of foot, left Departure Information Dispostion Home / Self-Care Condition GOOD Prescriptions Cephalexin Monohydrate (Keflex) 500 Mg Cap 500 MG PO QID for 9 Days, #36 CAP Prov: Robert Chacon PA-C 06/28/18 Doxycycline (Monohydrate) (Doxycycline) 100 Mg Cap 100 MG PO Q12, #19 TABS Prov: Robert Chacon PA-C 06/28/18 Referrals Chau Harkins M.D. (PCP) [facility] -[facility] will call you directly to schedule your follow-up appointment. -If you do not hear from [facility], or if you have questions, please feel free to contact [facility] Emergency Department Case Management at [phone]. Forms HOME CARE DOCUMENTATION FORM, IMPORTANT VISIT INFORMATION Patient Instructions My [facility] Additional Instructions You were seen in the emergency department for pain in your left foot. At this time I believe you have a an infection developing just behind the callus. I recommend following up with wound care center. They should call you within the next 1-2 days to schedule follow-up. If they do not please call back here at [phone] and ask for case therapist. They will be able to manage your wound. If there are any concerns you can also ask for Robert, this is who took care of you today. Please cleanse the foot daily in the shower. Please then pat dry, apply a small amount of antibiotic ointment to the bottom of your foot, and then a gauze pad or clean bandage and then wear the black shoe that we gave you. Please do this daily until you see the wound care center. Please do not walk barefoot as this can allow other infections into the area. Please no swimming, entering hot tubs or other bodies of water which could be contaminated with bacteria. Showering or bathing is okay. Be careful if you finisher brush the shower as bacteria on the bottom of the shower floor can get into the wound. To help avoid this you may sit down and sponge bathe. You are to take 2 antibiotics: The reason we are prescribing two different antibiotics is to cover for different types of organisms/bacteria that could be causing the infection. 1. Doxycycline 100 mg every 12 hours for 10 days. You were given the first dose here with the remainder at your pharmacy. 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 All antibiotics have the potential to cause diarrhea. Stop this medication and contact a medical provider if you were to develop any significant adverse side effects including: wheezing, shortness of breath, passing out, vomiting, or a diffuse rash. Always take antibiotics as directed and COMPLETE the ENTIRE course regardless of the improvement of your symptoms. Protect yourself with sunscreen while on this antibiotic as it increases your skin's sensitivity to the light and cause bad sunburns. In addition, you should be sure to take this pill after eating. Make sure the pill is completely swallowed as this medication can cause irritation to the lining of the esophagus. Do NOT drink milk or eat anything with large amounts of Calcium in them 1 hour prior to taking this medication as this will decrease the effectiveness of the medication. 2. Keflex 500mg every 6 hours for 10 days. You were given 4 tablets to go home with the remainder at your pharmacy. Please watch for worsening signs of infection. This includes increased redness , swelling, drainage, fevers, chills or any new/concerning symptoms. If these develop please return. Problem Qualifiers
[2018-06-28 21:13] VITALS: BP 148/82; PULSE 68; O2SAT 97
== END 2018-06-28 21:15 | disposition home or self-care (01) ==
LOC: C.EDB 19:16 → C.EDD 21:15
DX: M79.672 Pain in left foot (principal); L03.116 Cellulitis of left lower limb; L84 Corns and callosities; E11.9 Type 2 diabetes mellitus without complications; Z79.84 Long term (current) use of oral hypoglycemic drugs; Z79.899 Other long term (current) drug therapy; Z23 Encounter for immunization